=== PATIENT | female | born 1970 | race Caucasian/White ===

== ENCOUNTER 2017-09-10 10:30 | Observation (INO) ==
[2017-09-10] MEDS ORDERED: Ondansetron 4 MG/2 ML VIAL IVP ONE (10:59)
[2017-09-10] MEDS ORDERED: *HR* FentaNYL (PF) 100 MCG/2 ML VIAL IVP ONE ×3 (10:59→20:11)
[2017-09-10] MEDS ORDERED: Famotidine 20 MG/2 ML VIAL IVP ONE (10:59)
[2017-09-10] MEDS ORDERED: Isovue-370 500 ML INFUS..BTL IV ONE (11:00)
--- NOTE | 2017-09-10 11:11 | Emergency Department Note ---
Disposition Clinical Impression: Abdominal pain Qualifiers: Abdominal location: epigastric Qualified Code(s): R10.13 - Epigastric pain Disposition: Admitted As Inpatient Condition: Good Instructions: Abdominal Pain (ED) Reasons to Return/Additional Instructions: Please return to the emergency department should you have any other concerns. No cause for your abdominal pain was identified today. Given your history of pancreatic divisum, please stay in close contact with your pain specialist/ interventional radiologist to discuss future further need for celiac plexus blocks Referrals: Romaine Schmitt DO [Primary Care Provider] - Forms: ED Satisfaction Letter, Work/School Release Time of Disposition: 12:49 Abdominal Pain HPI - General Chief Complaint: ED Abdominal Pain Stated Complaint: ABD Pain Time Seen by Provider: 09/10/17 10:41 Source: patient Limitations: no limitations Nursing Notes Reviewed: Yes Vital Signs Reviewed: Yes - History of Present Illness HPI Narrative: Patient with history of pancreatic divisum. She states this pain is different. She complains of epigastric pain radiating to her back. She has underwent celiac plexus blocks at an outside tertiary facility recently. Pt Subjective Complaint: abdominal pain Onset (ago): day(s) Consistency: constant Location: diffuse, epigastric Pain Severity: severe Pain Scale: 9 Quality: aching Radiation: back, chest Improves with: nothing Worsens with: nothing Associated symptoms: Reports: nausea, diarrhea Treatments prior to arrival: other (Dulcolax) - Related Data Home Medications Medication Instructions Recorded Confirmed FLUoxetine HCl [Fluoxetine HCl] 40 mg PO DAILY 09/10/17 09/10/17 Gabapentin [Neurontin] 300 mg PO BID 09/10/17 09/10/17 Insulin Glargine,Hum.rec.anlog 30 unit SQ 09/10/17 09/10/17 [Basaglar Kwikpen U-100] Levothyroxine Sodium 88 mcg PO QAM 09/10/17 09/10/17 Metformin HCl [Metformin HCl ER] 1,000 mg PO BID 09/10/17 09/10/17 Ondansetron HCl 4 mg PO Q72H PRN 09/10/17 09/10/17 Oxybutynin [Ditropan] 5 mg PO BID 09/10/17 09/10/17 Ropinirole HCl [Requip] 0.5 mg PO HS 09/10/17 09/10/17 Topiramate [Topamax] 200 mg PO QPM 09/10/17 09/10/17 Topiramate [Topamax] 400 mg PO QAM 09/10/17 09/10/17 Allergies Allergy/AdvReac Type Severity Reaction Status Date / Time ciprofloxacin [From Cipro] Allergy Rash Verified 08/13/17 13:32 prochlorperazine AdvReac Mild Irritable Verified 08/13/17 13:32 [From Compazine] atorvastatin [From Lipitor] AdvReac Muscle Pain Verified 08/13/17 13:32 ketorolac [From Toradol] AdvReac Hypotension Verified 08/13/17 13:32 metoclopramide [From Reglan] AdvReac Confusion Verified 08/13/17 13:32 promethazine AdvReac Irritable Verified 08/13/17 13:32 All systems ED: reviewed and negative except as stated. Constitutional: Reports: as per HPI Eyes: Reports: as per HPI ENT ED: Reports: as per HPI Cardiovascular: Reports: chest pain Respiratory: Reports: as per HPI Gastrointestinal: Reports: abdominal pain, nausea, diarrhea Genitourinary: Reports: as per HPI Musculoskeletal: Reports: back pain Integumentary: Reports: as per HPI Neurological: Reports: as per HPI Abdominal Pain PMH - Past Medical History Medical history: Reports: diabetes, GERD, hyperlipidemia, migraine, thyroid disease, other Female Surgical History: Reports: cholecystectomy, hysterectomy, Tonsillectomy, other WANT AD RECEIVER history: Reports: non-contributory Psychiatric history: Reports: depression - Social History Smoking status: Never smoker Alcohol use: Reports: none Drug use: Reports: none Physical Exam Uncomfortable appearing - General Limitations: no limitations General appearance: alert - Head Head exam: atraumatic - Eye Eye exam: Present: normal appearance - ENT ENT exam: normal exam - Neck Neck exam: Present: normal inspection, full ROM - Chest Chest inspection: Present: normal inspection, symmetric chest wall rise - Respiratory Respiratory exam: Present: normal lung sounds bilaterally - Cardiovascular Cardiovascular exam: Present: regular rate, normal rhythm, normal heart sounds - Abdominal Exam Abdominal exam: Present: soft, tenderness (Mild tenderness in her epigastrium. No guarding rebound or rigidity), normal bowel sounds - Rectal Exam Rectal exam: Present: deferred - Extremities Exam Extremities exam: Present: normal inspection - Neurological Exam Neurological exam: Present: alert, oriented X3, CN II-XII intact - Psychiatric Psychiatric exam: Present: normal affect, anxious - Skin Skin exam: Present: warm, dry, intact Course Course Narrative: Patient presents to emergency department with upper abdominal pain. History of chronic recurrent abdominal pain which she states is subjectively different from her pancreatic divisum. She has a history of celiac plexus blocks. Labs and CT of her abdomen and pelvis ordered. The nurses were unable to obtain peripheral IV access I did start a 22-gauge left-sided external jugular line on first attempt - Reevaluation(s) Reevaluation #1: The patient developed non-urticarial erythema over her neck and upper chest after the administration of the fentanyl. She states this is not uncommon. No stridor or oropharyngeal swelling. IV antihistamines ordered and I will continue to observe Reevaluation #2: I initially recommended outpatient follow-up. The patient is uncomfortable with this plan. She states her pain is ongoing and uncontrolled. She requests admission or transfer. I will consult GI and requested admission to the medicine service - Consultations Consultation #1: GI warehouse consultant, Dr. Rodriguez Vital Signs Temperature 97.6 F 09/10/17 10:31 Pulse Rate 79 09/10/17 10:31 Respiratory Rate 18 09/10/17 10:31 Blood Pressure 129/80 09/10/17 10:31 O2 Sat by Pulse Oximetry 95 09/10/17 10:31 Temperature 97.6 F 09/10/17 10:37 Pulse Rate 76 09/10/17 14:10 Respiratory Rate 16 09/10/17 14:10 Blood Pressure 126/86 09/10/17 14:10 O2 Sat by Pulse Oximetry 98 09/10/17 14:10 Oxygen Delivery Oxygen Delivery Room Air Abdominal Pain - Lab Data Lab results reviewed: Yes I reviewed the patient's lab results. Result diagrams: 09/10/17 11:13 09/10/17 11:13 Lab Results 09/10/17 09/10/17 09/10/17 Range/Units 10:42 10:42 11:13 WBC 8.0 (4.3-11.1) K/mcL RBC 4.68 (3.82-4.97) M/mcL Hgb 13.6 (11.5-15.4) g/dL Hct 38.8 (35.3-44.9) % MCV 82.9 L (83.0-100.0) fL MCH 29.1 (28.0-33.3) pg MCHC 35.1 (31.6-35.5) g/dL RDW 13.2 (11.5-14.5) % Plt Count 154 (140-400) K/mcL MPV 9.7 (9.4-12.4) fL Immature Gran % 0.2 (0-4) % Seg Neutrophils % 56.1 % Lymphocytes % 35.9 % Monocytes % 5.6 % Eosinophils % 1.7 % Basophils % 0.5 % Neutrophils # 4.5 (1.6-8.9) K/mcL Lymphocytes # 2.9 (0.6-4.6) K/mcL Monocytes # 0.5 (0.0-1.3) K/mcL Eosinophils # 0.1 (0.0-0.6) K/mcL Basophils # 0.0 (0.0-0.2) K/mcL PT (9.4-12.1) Seconds INR APTT (26.0-36.0) Seconds Sodium (136-145) mEq/L Potassium (3.5-5.1) mEq/L Chloride (98-107) mEq/L Carbon Dioxide (23-29) mEq/L BUN (6-20) mg/dL Creatinine (0.60-1.20) mg/dL Est GFR ( Amer) (> 60) Est GFR (Non-Af Amer) (> 60) BUN/Creatinine Ratio (6-26) Glucose (70-105) mg/dL Calculated Osmolality (280-300) Calcium (8.6-10.3) mg/dL Total Bilirubin (0.3-1.0) mg/dL Direct Bilirubin (0.0-0.2) mg/dL Indirect Bilirubin (0.0-1.2) mg/dL AST (13-39) Units/L ALT (7-52) Units/L Alkaline Phosphatase (34-104) Units/L Troponin I (< 0.04) ng/mL Serum Total Protein (6.4-8.9) g/dL Albumin (3.5-5.7) g/dL Globulin (2.4-3.5) g/dL Albumin/Globulin Ratio (1.1-2.2) Amylase (29-103) Units/L Lipase (11-82) Units/L Urine Color Yellow (Yellow) Urine Clarity Clear (Clear) Urine pH 7.0 (5.0-8.0) pH Units Ur Specific [place] 1.013 (1.010-1.025) Urine Protein Negative (Neg-Trace) mg/dL Urine Glucose (UA) Normal (Normal) mg/dL Urine Ketones Negative (Negative) mg/dL Urine Blood Negative (Negative) Urine Nitrite Negative (Negative) Urine Bilirubin Negative (Negative) Urine Urobilinogen Normal (Normal) mg/dL Ur Leukocyte Esterase Negative (Negative) Ur Culture Indicated? NO (NO) Urine Test Negative (Negative) 09/10/17 09/10/17 Range/Units 11:13 11:13 WBC (4.3-11.1) K/mcL RBC (3.82-4.97) M/mcL Hgb (11.5-15.4) g/dL Hct (35.3-44.9) % MCV (83.0-100.0) fL MCH (28.0-33.3) pg MCHC (31.6-35.5) g/dL RDW (11.5-14.5) % Plt Count (140-400) K/mcL MPV (9.4-12.4) fL Immature Gran % (0-4) % Seg Neutrophils % % Lymphocytes % % Monocytes % % Eosinophils % % Basophils % % Neutrophils # (1.6-8.9) K/mcL Lymphocytes # (0.6-4.6) K/mcL Monocytes # (0.0-1.3) K/mcL Eosinophils # (0.0-0.6) K/mcL Basophils # (0.0-0.2) K/mcL PT 12.4 H (9.4-12.1) Seconds INR 1.1 APTT 29.4 (26.0-36.0) Seconds Sodium 139 (136-145) mEq/L Potassium 3.8 (3.5-5.1) mEq/L Chloride 107 (98-107) mEq/L Carbon Dioxide 21 L (23-29) mEq/L BUN 10 (6-20) mg/dL Creatinine 0.74 (0.60-1.20) mg/dL Est GFR ( Amer) > 60 (> 60) Est GFR (Non-Af Amer) > 60 (> 60) BUN/Creatinine Ratio 14 (6-26) Glucose 194 H (70-105) mg/dL Calculated Osmolality 292 (280-300) Calcium 9.7 (8.6-10.3) mg/dL Total Bilirubin 0.6 (0.3-1.0) mg/dL Direct Bilirubin 0.2 (0.0-0.2) mg/dL Indirect Bilirubin 0.4 (0.0-1.2) mg/dL AST 36 (13-39) Units/L ALT 28 (7-52) Units/L Alkaline Phosphatase 99 (34-104) Units/L Troponin I < 0.03 (< 0.04) ng/mL Serum Total Protein 6.8 (6.4-8.9) g/dL Albumin 4.2 (3.5-5.7) g/dL Globulin 2.6 (2.4-3.5) g/dL Albumin/Globulin Ratio 1.6 (1.1-2.2) Amylase 31 (29-103) Units/L Lipase 38 (11-82) Units/L Urine Color (Yellow) Urine Clarity (Clear) Urine pH (5.0-8.0) pH Units Ur Specific [place] (1.010-1.025) Urine Protein (Neg-Trace) mg/dL Urine Glucose (UA) (Normal) mg/dL Urine Ketones (Negative) mg/dL Urine Blood (Negative) Urine Nitrite (Negative) Urine Bilirubin (Negative) Urine Urobilinogen (Normal) mg/dL Ur Leukocyte Esterase (Negative) Ur Culture Indicated? (NO) Urine Test (Negative) - Radiology Data Radiology results reviewed: Yes I reviewed the patient's radiology results. - EKG Data EKG attestation: Yes I reviewed and interpreted this EKG. EKG results narrative: Normal sinus rhythm rate 66 P-R 126 QRS 81 QT/QTC 388/401. No acute ST segment elevation. Study compared to previous dated 12/13/16 Critical Care Time Critical Care Time: Yes Total Critical Care Time: 30 Attestation: The high probability of a clinically significant, sudden or life threatening deterioration of the [] system(s) required my full and direct attention, intervention and personal management. The aggregate critical care time was [] minutes. This time is in addition to time spent performing reported procedures but includes the following: [] Data Review and interpretation [] Patient assessment and monitoring of vital signs [] Documentation [] Medication orders and management
[2017-09-10 11:28] LABS: Basophils % 0.5 %; Eosinophils # 0.1 K/mcL (0.0-0.6); Eosinophils % 1.7 %; Hematocrit 38.8 % (35.3-44.9); Hemoglobin 13.6 g/dL (11.5-15.4); Immature Granulocytes % 0.2 % (0-4); Lymphocytes # 2.9 K/mcL (0.6-4.6); Lymphocytes % 35.9 %; Mean Corpuscular HGB Conc 35.1 g/dL (31.6-35.5); Mean Corpuscular Hemoglobin 29.1 pg (28.0-33.3); Mean Corpuscular Volume 82.9 fL (83.0-100.0); Mean Platelet Volume 9.7 fL (9.4-12.4); Monocytes # 0.5 K/mcL (0.0-1.3); Monocytes % 5.6 %; Neutrophils # 4.5 K/mcL (1.6-8.9); Platelet Count 154 K/mcL (140-400); Red Blood Count 4.68 M/mcL (3.82-4.97); Red Cell Distribution Width 13.2 % (11.5-14.5); Segmented Neutrophils % 56.1 %
[2017-09-10 11:36] LABS: INR 1.1; Prothrombin Time 12.4 Seconds (9.4-12.1)
[2017-09-10 11:39] LABS: Activated Partial Thrombo Time 29.4 Seconds (26.0-36.0)
[2017-09-10 11:48] LABS: Troponin I < 0.03 ng/mL (< 0.04)
[2017-09-10 11:54] LABS: Alanine Aminotransferase 28 Units/L (7-52); Albumin 4.2 g/dL (3.5-5.7); Albumin/Globulin Ratio 1.6 (1.1-2.2); Alkaline Phosphatase 99 Units/L (34-104); Amylase 31 Units/L (29-103); Aspartate Amino Transferase 36 Units/L (13-39); BUN/Creatinine Ratio 14 (6-26); Bilirubin,Direct 0.2 mg/dL (0.0-0.2); Bilirubin,Indirect 0.4 mg/dL (0.0-1.2); Bilirubin,Total 0.6 mg/dL (0.3-1.0); Blood Urea Nitrogen 10 mg/dL (6-20); Calcium 9.7 mg/dL (8.6-10.3); Carbon Dioxide 21 mEq/L (23-29); Chloride 107 mEq/L (98-107); Globulin 2.6 g/dL (2.4-3.5); Glucose 194 mg/dL (70-105); Lipase 38 Units/L (11-82); Osmolality,Calculated 292 (280-300); Potassium 3.8 mEq/L (3.5-5.1); Sodium 139 mEq/L (136-145); Total Protein 6.8 g/dL (6.4-8.9); eGFR For African Americans > 60 (> 60); eGFR For Non-African Americans > 60 (> 60)
[2017-09-10 11:58] LABS: Bilirubin,Urine Negative (Negative); Blood,Urine Negative (Negative); Clarity,Urine Clear (Clear); Color,Urine Yellow (Yellow); Glucose,Urine (UA) Normal (Normal); Ketones,Urine Negative (Negative); Leukocyte Esterase,Urine Negative (Negative); Nitrite,Urine Negative (Negative); Protein,Urine Negative (Neg-Trace); Specific Gravity,Urine 1.013 (1.010-1.025); Urobilinogen,Urine Normal (Normal)
[2017-09-10] MEDS ORDERED: Ketamine *HR* 20 MG in 0.9 % Sodium Chloride 100 ML IVPB ONE (13:37)
[2017-09-10] MEDS ORDERED: 0.9 % Sodium Chloride 1,000 ML IVC ONE (13:45)
--- NOTE | 2017-09-10 14:53 | Electrocardiograph Report ---
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
--- NOTE | 2017-09-10 16:44 | Internal Med History&Physical ---
Date of Encounter: 09/10/17 Time of Encounter: 16:44 Internal Medicine - H&P: HPI Chief complaint: Abdominal pain History of present illness: Ms. Colmenares is a 47 year old female presents to emergency department with upper abdominal pain. History of chronic recurrent abdominal pain which she states is subjectively different from her pancreatic divisum. She has a history of celiac plexus blocks. Labs and CT of her abdomen and pelvis were negative. She is requesting pain medication and Benadryl IV only, concerns for drug seeking behavior, admitted for pain control. GI was contacted by ER and agree to see in consult. Past Med Surg Social Fam HX - Past Medical History Medical history: diabetes, GERD, hyperlipidemia, migraine, thyroid disease, other Additional medical history: pancreatic dividism Psychiatric history: depression - Past Surgical History Surgical History: cholecystectomy Additional surgical history: back - Social History Smoking Status: Never smoker Smokeless Tobacco Status: No Alcohol use: none Drug use: none - Family History Father Living Status: Still Living Hx Family Cardiac Disorders: Yes Hx Family Endocrine Disorder: Yes Mother Living Status: Hx Family Respiratory Disorders: Yes Hx Family Cancer: Yes (colon cancer) Internal Medicine - H&P: Meds FLUoxetine HCl [Fluoxetine HCl] 40 mg PO DAILY 09/10/17 [History] Gabapentin [Neurontin] 300 mg PO BID 09/10/17 [History] Insulin Glargine,Hum.rec.anlog [Basaglar Kwikpen U-100] 30 unit SQ HS 09/10/17 [ History] Levothyroxine Sodium 88 mcg PO QAM 09/10/17 [History] Metformin HCl [Metformin HCl ER] 1,000 mg PO BID 09/10/17 [History] Ondansetron HCl 4 mg PO Q72H PRN 09/10/17 [History] Oxybutynin [Ditropan] 5 mg PO BID 09/10/17 [History] Ropinirole HCl [Requip] 0.5 mg PO HS 09/10/17 [History] Topiramate [Topamax] 200 mg PO QAM 09/10/17 [History] Topiramate [Topamax] 400 mg PO QPM 09/10/17 [History] 3 Allergy/AdvReac Type Severity Reaction Status Date / Time ciprofloxacin [From Cipro] Allergy Rash Verified 08/13/17 13:32 prochlorperazine AdvReac Mild Irritable Verified 08/13/17 13:32 [From Compazine] atorvastatin [From Lipitor] AdvReac Muscle Pain Verified 08/13/17 13:32 ketorolac [From Toradol] AdvReac Hypotension Verified 08/13/17 13:32 metoclopramide [From Reglan] AdvReac Confusion Verified 08/13/17 13:32 promethazine AdvReac Irritable Verified 08/13/17 13:32 All Systems PM: A 10-system review of systems was performed and is negative for pertinent findings except as documented above in the HPI. - Constitutional Constitutional: no chills, no fever(s), no night sweats - Cardiovascular Cardiovascular ROS IM: no chest pain, no diaphoresis, no dyspnea, no lightheadedness, no palpitations, no syncope - Respiratory Respiratory: no cough, no dyspnea, no wheezing, no excessive phlegm production - Gastrointestinal Gastrointestinal: abdominal pain, no diarrhea, no hematemesis, no hematochezia, no melena, no nausea, no vomiting - Neurological Neurological ROS: no confusion, no convulsions, no focal weakness, no numbness, no tingling, no tremor(s) - Constitutional Vitals: Temp Pulse Resp BP Pulse Ox 97.6 F 63 16 128/87 98 09/10/17 10:37 09/10/17 14:54 09/10/17 15:34 09/10/17 15:34 09/10/17 14:54 General appearance: Present: A&O X 3 - Head Head exam: Present: atraumatic, normocephalic - Neck Neck exam general surgery: Present: supple, trachea midline. Absent: lymphadenopathy - Respiratory Respiratory exam: Present: CTAB. Absent: accessory muscle use, rales, rhonchi, wheezes - Cardiovascular Cardiovascular exam: Present: RRR, +S1, +S2. Absent: diastolic murmur, gallop, rubs, systolic murmur - GI/Abdominal GI/Abdominal exam: Present: normal bowel sounds, soft, no peritoneal signs. Absent: distended, tenderness - Extremities Exam Extremities exam: Present: warm, radial pulses palpable and symmetrical. Absent : calf tenderness, cyanotic, pedal edema Internal Med - H&P Results - Labs CBC & Chem 7: 09/11/17 08:37 09/11/17 08:37 - Assessment and plan (1) Abdominal pain Current Visit: Yes Status: Acute Assessment and plan: Recurrent abdominal pain which she states is subjectively different from her pancreatic divisum. She has a history of celiac plexus blocks. She is requesting pain medication and Benadryl IV only, concerns for drug seeking behavior, admitted for pain control. GI was contacted by ER and agree to see in consult. Qualifiers: Abdominal location: epigastric Qualified Code(s): R10.13 - Epigastric pain (2) HLD (hyperlipidemia) Current Visit: Yes Status: Inactive Assessment and plan: We will obtain fasting lipid profile in a.m., currently not on any medication Qualifiers: Hyperlipidemia type: unspecified Qualified Code(s): E78.5 - Hyperlipidemia , unspecified (3) GERD (gastroesophageal reflux disease) Current Visit: No Status: Chronic Qualifiers: Qualified Code(s): K21.9 - Gastro-esophageal reflux disease without esophagitis (4) Pancreatic divisum Current Visit: No Status: Acute Assessment and plan: t reports history of pancreatic divisum, S/p celiac plexus blocks completed at [facility]. We will consult GI for further evaluation and management. (5) Diabetes Current Visit: No Status: Chronic Assessment and plan: We will continue home medication start patient insofar as scale with moderate coverage Qualifiers: Diabetes mellitus type: type 2 Diabetes mellitus complication status: without complication Qualified Code(s): E11.9 - Type 2 diabetes mellitus without complications (6) Hypothyroidism Current Visit: No Status: Acute Assessment and plan: We will continue home thyroxine Qualifiers: Qualified Code(s): E03.9 - Hypothyroidism, unspecified (7) Bipolar 1 disorder Current Visit: No Status: Chronic Assessment and plan: We will continue home medication (8) DVT prophylaxis Current Visit: No Status: Acute Assessment and plan: heparin 5000 BID - Time Spent With Patient Total time spent is greater than 50% in coordination of care (as documented) at patient's floor/unit and/or counseling patient:
[2017-09-10] MEDS ORDERED: ONDANSETRON HCL 4 MG PO PRN (16:45)
[2017-09-10] MEDS ORDERED: Ondansetron ODT 4 MG TAB.RAPDIS SL PRN (17:50)
[2017-09-10] MEDS ORDERED: Acetaminophen 325 MG TABLET PO PRN (17:50)
[2017-09-10] MEDS ORDERED: Ondansetron 4 MG/2 ML VIAL IVP PRN (17:50)
[2017-09-10] MEDS ORDERED: Naloxone 0.4 MG/ML INJ IVP PRN (17:50)
[2017-09-10] MEDS ORDERED: traMADol 50 MG TABLET PO PRN (17:50)
[2017-09-10] MEDS ORDERED: Topiramate 100 MG TABLET PO SCH ×2 (18:00→18:15)
[2017-09-10] MEDS: *HR* OxyCODONE Immed Rel 5 MG TABLET PO PRN (18:18)
[2017-09-10] MEDS: *HR* Metformin 500 MG TABLET PO SCH (18:55)
[2017-09-10] MEDS ORDERED: Acetaminophen IV 1,000 MG/100 ML INFUS..BTL IVPB PRN (20:20)
[2017-09-10] MEDS ORDERED: Insulin DETEMIR 100 UNIT/ML X5UNITS SQ SCH (21:00)
[2017-09-10] MEDS ORDERED: rOPINIRole 1 MG TABLET PO SCH (21:00)
[2017-09-10] MEDS: Gabapentin 300 MG CAPSULE PO SCH (21:30)
[2017-09-11] MEDS ORDERED: GI Cocktail 40 ML EACH PO ONE (03:06)
[2017-09-11] MEDS: *HR* OxyCODONE Immed Rel 5 MG TABLET PO PRN (08:08)
[2017-09-11] MEDS: *HR* Metformin 500 MG TABLET PO SCH (08:10)
[2017-09-11] MEDS: Gabapentin 300 MG CAPSULE PO SCH (08:10)
[2017-09-11] MEDS ORDERED: Naloxone 0.4 MG/ML INJ IVP PRN (08:14)
[2017-09-11 08:56] LABS: Basophils % 0.6 %; Eosinophils # 0.2 K/mcL (0.0-0.6); Eosinophils % 2.4 %; Hematocrit 39.7 % (35.3-44.9); Hemoglobin 13.8 g/dL (11.5-15.4); Immature Granulocytes % 0.2 % (0-4); Lymphocytes # 2.4 K/mcL (0.6-4.6); Lymphocytes % 37.8 %; Mean Corpuscular HGB Conc 34.8 g/dL (31.6-35.5); Mean Corpuscular Hemoglobin 29.2 pg (28.0-33.3); Mean Corpuscular Volume 84.1 fL (83.0-100.0); Mean Platelet Volume 9.6 fL (9.4-12.4); Monocytes # 0.4 K/mcL (0.0-1.3); Neutrophils # 3.3 K/mcL (1.6-8.9); Platelet Count 158 K/mcL (140-400); Red Blood Count 4.72 M/mcL (3.82-4.97); Red Cell Distribution Width 13.3 % (11.5-14.5)
[2017-09-11] MEDS ORDERED: Topiramate 100 MG TABLET PO SCH ×2 (09:00→10:25)
[2017-09-11] MEDS ORDERED: FLUoxetine 20 MG CAPSULE PO SCH ×2 (09:00→10:14)
[2017-09-11 09:02] LABS: INR 1.1; Prothrombin Time 12.3 Seconds (9.4-12.1)
[2017-09-11 09:05] LABS: Activated Partial Thrombo Time 33.3 Seconds (26.0-36.0)
[2017-09-11 09:13] LABS: Alanine Aminotransferase 31 Units/L (7-52); Albumin 3.9 g/dL (3.5-5.7); Albumin/Globulin Ratio 1.3 (1.1-2.2); Alkaline Phosphatase 81 Units/L (34-104); Aspartate Amino Transferase 53 Units/L (13-39); BUN/Creatinine Ratio 13 (6-26); Bilirubin,Total 1.1 mg/dL (0.3-1.0); Blood Urea Nitrogen 9 mg/dL (6-20); Calcium 9.1 mg/dL (8.6-10.3); Carbon Dioxide 23 mEq/L (23-29); Chloride 109 mEq/L (98-107); Globulin 2.9 g/dL (2.4-3.5); Glucose 138 mg/dL (70-105); Magnesium 1.8 mg/dL (1.6-2.6); Osmolality,Calculated 289 (280-300); Phosphorous 4.7 mg/dL (2.7-4.5); Potassium 3.8 mEq/L (3.5-5.1); Sodium 139 mEq/L (136-145); Total Protein 6.8 g/dL (6.4-8.9); eGFR For African Americans > 60 (> 60); eGFR For Non-African Americans > 60 (> 60)
[2017-09-11] MEDS ORDERED: Gabapentin 300 MG CAPSULE PO SCH (10:15)
--- NOTE | 2017-09-11 11:01 | Gastroenterology Consult Note ---
Date of Encounter: 09/11/17 Time of Encounter: 10:20 - Assessment and plan (1) Abdominal pain Current Visit: Yes Status: Acute Assessment and plan: Due to epigastric pain and continued use of omeprazole, consider EGD tomorrow to r/o esophagitis, gastritis, duodenitis, PUD, MW tear, or AVM. Start omeprazole 40 mg daily. Pt requesting IV pain medication and IV Benadryl. Concern for drug seeking behavior. Patient educated regarding lifestyle modifications including: (1) avoidance of foods that may precipitate reflux (eg, coffee, alcohol, chocolate, fatty foods) . (2) avoidance of acidic foods that may precipitate heartburn (eg, citrus, carbonated drinks, spicy foods). (3) adoption of behaviors that may reduce esophageal acid exposure (see weight loss, smoking cessation, raising the head of the bed, and avoiding recumbency for 2-3 hours after meals). Qualifiers: Abdominal location: epigastric Qualified Code(s): R10.13 - Epigastric pain (2) Pancreatic divisum Current Visit: Yes Status: Acute Assessment and plan: Pt reports history of pancreatic divisum, and states she is receiving treatment once per year at [facility]. Patient has had 10 CT A/P since 05/15/2015 with no abnormality noted to pancreas. No MRIs have been completed here. Patient reports having MRI and celiac plexus blocks completed at [facility]. Please obtain these records for review. - Time Spent With Patient Total time spent is greater than 50% in coordination of care (as documented) at patient's floor/unit and/or counseling patient: GI History of Present Illness - Data of Consult Patient: new to practice Consult date: 09/11/17 Requesting Physician: Christina Chatman - Consult Narrative Reason for consult: Abdominal pain History of present illness: Ms. Colmenares is a 47 year old female with PMHx of DM, pancreatic divisum, GERD, HLD, migraine, thyroid disease who presented to the ED with upper abdominal pain. She has underwent celiac plexus blocks at an outside tertiary facility recently (at [facility]). She states this pain is different from her pancreatic divisum. CT A/P with no acute pathology. She is requesting pain medication and Benadryl IV only, concerns for drug seeking behavior, admitted for pain control. Pt reports having celiac nerve blocks about once per year at [facility], last was 2-3 weeks ago per pt report. With review of medical record, it appears she also had celiac block in August 2016. Today, she is complaining of epigastric pain that is worsened with eating. She reports taking omeprazole 40 mg daily for "several years". Patient was eating when I examined her, and she states she has only had 1-2 bites of food today. Per RN, patient also ate a bowl of cream of wheat this morning. Pt states "they are only giving me pain pills, if I wanted that I could have stayed home". Procedures: EGD 02/18/2014 Dr. Rasheed: Normal Esophageal manometry 01/09/2013 Dr. Menjivar: Normal EGD 12/29/2012 Dr. Menjivar: Normal NSAIDs: None Anticoagulation: None Past Med Surg Social Fam HX - Past Medical History Medical history: diabetes, GERD, hyperlipidemia, migraine, thyroid disease, other Additional medical history: pancreatic dividism Psychiatric history: depression - Past Surgical History Surgical History: cholecystectomy Additional surgical history: back - Social History Smoking Status: Never smoker Smokeless Tobacco Status: No Alcohol use: none Drug use: none - Family History Father Living Status: Still Living Hx Family Cardiac Disorders: Yes Hx Family Endocrine Disorder: Yes Mother Living Status: Hx Family Respiratory Disorders: Yes Hx Family Cancer: Yes (colon cancer) - Gastrointestinal Gastrointestinal: Present: as per HPI - Constitutional Constitutional: as per HPI - EENT Eyes: as per HPI Ears: Present: as per HPI Nose, mouth and throat: Present: as per HPI - Cardiovascular Cardiovascular ROS: Present: as per HPI - Respiratory Respiratory IM: Present: as per HPI - Genitourinary Genitourinary: Absent: change in color, Urinary frequency - Neurological ROS Neurological GI: Present: as per HPI - Hematologic/Lymphatic Hematologic/Lymphatic pediatric: Present: as per HPI - Musculoskeletal Musculoskeletal ROS GI: Present: as per HPI - Integumentary Integumentary GI: Present: as per HPI - Psychiatric ROS Psychiatric GI: Present: as per HPI - Endocrine Endocrine IM: Present: as per HPI - Constitutional Vitals: Temp Pulse Resp BP Pulse Ox 97.7 F 63 17 116/78 96 09/10/17 23:22 09/10/17 23:22 09/10/17 23:22 09/10/17 23:22 09/10/17 23:22 General appearance: Present: cooperative, A&O X 3, no acute distress, answers questions appropriately - Head Head exam: Present: atraumatic, normocephalic - Eye Eye exam: Present: normal appearance, sclera anicteric - ENT ENT exam: Present: mucous membranes moist - Neck Neck exam general surgery: Present: normal inspection, trachea midline - Respiratory Respiratory exam: Present: CTAB. Absent: rales, rhonchi - Cardiovascular Cardiovascular exam: Present: RRR, +S1, +S2 - GI/Abdominal GI/Abdominal exam: Present: soft, tenderness (epigastric), no peritoneal signs. Absent: distended, firm, guarding - Rectal Rectal exam: Present: deferred - Extremities Exam Extremities exam: Present: warm - Neurological Exam Neurological exam: Present: no focal deficits - Psychiatric Psychiatric exam: Present: normal affect, normal mood - Skin Skin exam: Present: dry, intact, normal color, warm Results - Labs CBC & Chem 7: 09/11/17 08:37 09/11/17 08:37 Labs: Last Result Calcium 9.1 mg/dL (8.6-10.3) 09/11/17 08:37 Troponin I < 0.03 ng/mL (< 0.04) 09/10/17 11:13 Entire Visit Hgb 13.8 g/dL (11.5-15.4) 09/11/17 08:37 Hct 39.7 % (35.3-44.9) 09/11/17 08:37 PT 12.3 Seconds (9.4-12.1) H 09/11/17 08:37 Total Bilirubin 1.1 mg/dL (0.3-1.0) H 09/11/17 08:37 AST 53 Units/L (13-39) H 09/11/17 08:37 ALT 31 Units/L (7-52) 09/11/17 08:37 Amylase 31 Units/L (29-103) 09/10/17 11:13 Lipase 38 Units/L (11-82) 09/10/17 11:13 - ABG ABG results: PT/INR, D-dimer PT 12.3 Seconds (9.4-12.1) H 09/11/17 08:37 Consult Discharge Plan - Plan Referrals: Romaine Schmitt DO [Primary Care Provider] -
[2017-09-11] MEDS ORDERED: *HR* Dextrose 50 % in Water (Syg) 50 ML SYRINGE IVP PRN (13:33)
[2017-09-11] MEDS ORDERED: Dextrose Gel 15 GM/37.5 ML TUBE PO PRN ×2 (13:33)
[2017-09-11] MEDS ORDERED: D5% in Water 1,000 ML IVC PRN (13:33)
[2017-09-11 14:26] VITALS: BP 104/69
[2017-09-11] MEDS ORDERED: Insulin LISPRO 300 UNITS/3 ML VIAL SQ SCH ×2 (16:30→21:00)
--- NOTE | 2017-09-11 17:01 | Discharge Summary ---
- NOTES TO OUTPATIENT PROVIDER Notes to Outpatient Provider: F/U with PCP out pt Date of Encounter: 09/11/17 Time of Encounter: 16:59 - Discharge Diagnosis (1) Abdominal pain Priority: Primary Status: Acute Assessment and Plan: Recurrent abdominal pain which she states is subjectively different from her pancreatic divisum. She has a history of celiac plexus blocks. She is requesting pain medication and Benadryl IV only, concerns for drug seeking behavior from prior physicians, admitted for pain control. GI was contacted by ER and agree to see in consult. Pt states last block was about 2 weeks ago and she gets one about every year. GI evaluated the patient and had requested records from [place]. Pt states "I don't think it's my pancreas causing the pain." When asked to point to her pain she pointed to her epigastrium. She states prior pancreatic pain was LUQ but this abd pain radiates to her RUQ. When asked about her GB she states she had pamela done years ago. Denied fever chills, N/V constipation or diarrhea. Pt informed that GI was awaiting her records from [place]. SHe seemed discontent with this. Nurse informed me that pt left AMA. Qualifiers: Abdominal location: epigastric Qualified Code(s): R10.13 - Epigastric pain (2) GERD (gastroesophageal reflux disease) Priority: Secondary Status: Chronic Assessment and Plan: PPI Qualifiers: Qualified Code(s): K21.9 - Gastro-esophageal reflux disease without esophagitis (3) HLD (hyperlipidemia) Priority: Secondary Status: Inactive Assessment and Plan: no medication listed on home med list Qualifiers: Hyperlipidemia type: unspecified Qualified Code(s): E78.5 - Hyperlipidemia , unspecified (4) Pancreatic divisum Priority: Secondary Status: Acute Assessment and Plan: Pt reports history of pancreatic divisum, S/p celiac plexus blocks completed at [facility]. Pt states last block was about 2 weeks ago and she gets one about every year. GI evaluated the patient and had requested records from [place]. Pt states "I don't think it's my pancreas causing the pain." When asked to point to her pain she pointed to her epigastrium. She states prior pancreatic pain was LUQ but this abd pain radiates to her RUQ. When asked about her GB she states she had pamela done years ago. Denied fever chills, N/V constipation or diarrhea. Pt informed that GI was awaiting her records from [place]. SHe seemed discontent with this. Nurse informed me that pt left AMA. Hospital course: Ms. Colmenares is a 47 year old female Discharge discussed with: patient - Time Spent with Patient Total time spent providing and/or coordinating discharge services: Greater than 30 minutes - Discharge Medications Home Medications: FLUoxetine HCl [Fluoxetine HCl] 40 mg PO DAILY 09/10/17 [History] Gabapentin [Neurontin] 300 mg PO BID 09/10/17 [History] Insulin Glargine,Hum.rec.anlog [Basaglar Kwikpen U-100] 30 unit SQ HS 09/10/17 [ History] Levothyroxine Sodium 88 mcg PO QAM 09/10/17 [History] Metformin HCl [Metformin HCl ER] 1,000 mg PO BID 09/10/17 [History] Ondansetron HCl 4 mg PO Q72H PRN 09/10/17 [History] Oxybutynin [Ditropan] 5 mg PO BID 09/10/17 [History] Ropinirole HCl [Requip] 0.5 mg PO HS 09/10/17 [History] Topiramate [Topamax] 200 mg PO QAM 09/10/17 [History] Topiramate [Topamax] 400 mg PO QPM 09/10/17 [History] Allergies/Adverse Reactions: 3 Allergy/AdvReac Type Severity Reaction Status Date / Time ciprofloxacin [From Cipro] Allergy Rash Verified 08/13/17 13:32 prochlorperazine AdvReac Mild Irritable Verified 08/13/17 13:32 [From Compazine] atorvastatin [From Lipitor] AdvReac Muscle Pain Verified 08/13/17 13:32 ketorolac [From Toradol] AdvReac Hypotension Verified 08/13/17 13:32 metoclopramide [From Reglan] AdvReac Confusion Verified 08/13/17 13:32 promethazine AdvReac Irritable Verified 08/13/17 13:32 Date of admission: 09/10/17 14:43 Primary care physician: Romaine Schmitt Consults: 09/11/17 08:15 Consult to Physician [CONS] Routine Consulting Provider: Poonam Menjivar Reason for Consult: Abdominal pain Time Notified: 08:16 Call Completed: Yes - Constitutional Vitals: Temp Pulse Resp BP Pulse Ox 98.7 F 78 16 104/69 96 09/11/17 14:25 09/11/17 14:25 09/11/17 14:25 09/11/17 14:25 09/11/17 14:25 General appearance: Present: A&O X 3 - Head Head exam: Present: atraumatic, normocephalic - Eye Eye exam: Present: PERRL, conjuntiva pink, sclera anicteric Pupils: Present: PERRL - Neck Neck exam general surgery: Present: supple, trachea midline. Absent: lymphadenopathy - Respiratory Respiratory exam: Present: CTAB. Absent: accessory muscle use, rales, rhonchi, wheezes - Cardiovascular Cardiovascular exam: Present: RRR, +S1, +S2. Absent: diastolic murmur, gallop, rubs, systolic murmur - GI/Abdominal GI/Abdominal exam: Present: normal bowel sounds, soft, no peritoneal signs. Absent: distended, tenderness - Extremities Exam Extremities exam: Present: warm, radial pulses palpable and symmetrical. Absent : calf tenderness, cyanotic, pedal edema - Neurological Exam Neurological exam: Present: CN II-XII intact, oriented X3, no focal deficits. Absent: pronater drift, facial droop, speech deficit - Skin Skin exam: Present: dry, intact - Patient Status Disposition: Left Against Medical Advice Condition: Good - Discharge Instructions Follow Up With: Romaine Schmitt DO [Primary Care Provider] - - Diet and Activity Activity: increase activity as tolerated Diet: advance to your usual diet
[2017-09-11] MEDS ORDERED: *HR* Heparin 5,000 UNIT/ML VIAL SQ SCH (18:00)
== END 2017-09-11 15:46 | disposition left against medical advice (07) ==
LOC: 3ANU 10:30 → EMEROO 10:30 → 3ANU 15:20
PROVIDERS: ADMIT Internal Medicine Nephrology; ATTEND Internal Medicine Nephrology

== ENCOUNTER 2018-03-01 15:38 | Observation (INO) ==
[2018-03-01] MEDS ORDERED: Aspirin 81 MG TAB.CHEW PO ONE (15:50)
[2018-03-01] MEDS ORDERED: *HR* FentaNYL (PF) 100 MCG/2 ML VIAL IVP ONE (15:59)
--- NOTE | 2018-03-01 15:59 | Emergency Department Note ---
Disposition Clinical Impression: Chest pain Qualifiers: Chest pain type: precordial pain Qualified Code(s): R07.2 - Precordial pain Disposition: Admitted As Inpatient Condition: Good Referrals: Romaine Schmitt DO [Primary Care Provider] - Time of Disposition: 21:14 General Adult HPI - General Stated complaint: chest pain Time Seen by Provider: 03/01/18 15:43 Source: patient Mode of arrival: ambulatory Limitations: no limitations - History of Present Illness HPI Narrative: This is a 48-year-old female who comes to emergency department reporting chest pain above the left breast with extension or radiation into the left shoulder that began about 3 hours prior to arrival and is aggravated by activity. She reports no prior similar episodes. No nausea or vomiting. She does report dyspnea on exertion. - Related Data Home Medications Medication Instructions Recorded Confirmed FLUoxetine HCl [Fluoxetine HCl] 40 mg PO DAILY 09/10/17 09/10/17 Gabapentin [Neurontin] 300 mg PO BID 09/10/17 09/10/17 Insulin Glargine,Hum.rec.anlog 30 unit SQ 09/10/17 09/10/17 [Basaglar Kwikpen U-100] Levothyroxine Sodium 88 mcg PO QAM 09/10/17 09/10/17 Metformin HCl [Metformin HCl ER] 1,000 mg PO BID 09/10/17 09/10/17 Ondansetron HCl 4 mg PO Q72H PRN 09/10/17 09/10/17 Oxybutynin [Ditropan] 5 mg PO BID 09/10/17 09/10/17 Ropinirole HCl [Requip] 0.5 mg PO HS 09/10/17 09/10/17 Topiramate [Topamax] 200 mg PO QAM 09/10/17 09/10/17 Topiramate [Topamax] 400 mg PO QPM 09/10/17 09/10/17 Previous Rx's Medication Instructions Recorded Dicyclomine [Bentyl] 10 mg PO QID #12 capsule 12/06/17 Lidocaine Patch [Lidoderm 5% patch] 1 each TP DAILY PRN #3 adh..patch 12/06/17 Ondansetron ODT [Zofran ODT] 4 mg SL Q8HR PRN #12 tab.rapdis 12/06/17 Orphenadrine [Norflex] 100 mg PO BID #6 tablet.er 12/06/17 Allergies Allergy/AdvReac Type Severity Reaction Status Date / Time ciprofloxacin [From Cipro] Allergy Rash Verified 03/01/18 15:59 prochlorperazine AdvReac Mild Irritable Verified 03/01/18 15:59 [From Compazine] atorvastatin [From Lipitor] AdvReac Muscle Pain Verified 03/01/18 15:59 ketorolac [From Toradol] AdvReac Hypotension Verified 03/01/18 15:59 metoclopramide [From Reglan] AdvReac Confusion Verified 03/01/18 15:59 promethazine AdvReac Irritable Verified 03/01/18 15:59 All systems ED: reviewed and negative except as stated. 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 - Social History Smoking Status: Never smoker Smokeless Tobacco Status: No Alcohol use: Reports: none Drug use: Reports: none Physical Exam - General Limitations: no limitations General appearance: alert, in distress (In minimal distress) - Head Head exam: atraumatic, normocephalic, normal inspection - Eye Eye exam: Present: normal appearance, PERRL, EOMI - Chest Chest inspection: Present: normal inspection, symmetric chest wall rise - Respiratory Respiratory exam: Present: normal lung sounds bilaterally - Cardiovascular Cardiovascular exam: Present: regular rate, normal rhythm, normal heart sounds - Abdominal Exam Abdominal exam: Present: soft, Non-Tender. Absent: tenderness, distention, guarding, rebound, rigidity - Extremities Exam Extremities exam: Present: normal inspection, full ROM. Absent: tenderness, pedal edema - Neurological Exam Neurological exam: Present: alert, oriented X3 - Psychiatric Psychiatric exam: Present: normal affect, normal mood - Skin Skin exam: Present: warm, dry, intact, normal color Course Course Narrative: This is a 48-year-old diabetic female with chest pain concerning for acute coronary syndrome Vital Signs Temperature 98.4 F 03/01/18 15:55 Pulse Rate 72 03/01/18 15:55 Respiratory Rate 18 03/01/18 15:55 Blood Pressure 135/84 03/01/18 15:55 O2 Sat by Pulse Oximetry 99 03/01/18 15:55 Temperature 98.4 F 03/01/18 15:55 Pulse Rate 79 03/01/18 21:01 Respiratory Rate 16 03/01/18 21:01 Blood Pressure 95/61 03/01/18 21:01 O2 Sat by Pulse Oximetry 98 03/01/18 21:01 Oxygen Delivery Oxygen Delivery Room Air Medical Decision Making - MDM Narrative Medical decision making narrative: This is a 48-year-old female who has had intermittent chest pain during her stay here in the emergency department. Her pain appears to be difficult to control in that it continues to recur. She has had a negative troponin and has had a negative CT chest. Although her heart score is 3, I am concerned about the recurrence of her pain. I discussed her case with the on-call hospitalist, who accepted her for admission - Lab Data Lab results reviewed: Yes I reviewed the patient's lab results. Lab results narrative: CBC was unremarkable BMP was unremarkable Troponin was low D-dimer was slightly elevated at 649 Result diagrams: 03/01/18 16:09 03/01/18 16:09 Lab Results 03/01/18 03/01/18 03/01/18 Range/Units 16:09 16:09 17:36 WBC 7.6 (4.3-11.1) K/mcL RBC 5.03 H (3.82-4.97) M/mcL Hgb 14.3 (11.5-15.4) g/dL Hct 41.2 (35.3-44.9) % MCV 81.9 L (83.0-100.0) fL MCH 28.4 (28.0-33.3) pg MCHC 34.7 (31.6-35.5) g/dL RDW 13.4 (11.5-14.5) % Plt Count 171 (140-400) K/mcL MPV 9.9 (9.4-12.4) fL Immature Gran % 0.1 (0-4) % Seg Neutrophils % 52.8 % Lymphocytes % 38.0 % Monocytes % 5.4 % Eosinophils % 3.0 % Basophils % 0.7 % Neutrophils # 4.0 (1.6-8.9) K/mcL Lymphocytes # 2.9 (0.6-4.6) K/mcL Monocytes # 0.4 (0.0-1.3) K/mcL Eosinophils # 0.2 (0.0-0.6) K/mcL Basophils # 0.1 (0.0-0.2) K/mcL D-Dimer 649 H (0-500) ng/mLFEU Sodium 138 (136-145) mEq/L Potassium 3.7 (3.5-5.1) mEq/L Chloride 107 (98-107) mEq/L Carbon Dioxide 22 L (23-29) mEq/L BUN 10 (6-20) mg/dL Creatinine 0.79 (0.60-1.20) mg/dL Est GFR ( Amer) > 60 (> 60) Est GFR (Non-Af Amer) > 60 (> 60) BUN/Creatinine Ratio 13 (6-26) Glucose 130 H (70-105) mg/dL Calculated Osmolality 287 (280-300) Calcium 9.2 (8.6-10.3) mg/dL Troponin I < 0.03 (< 0.04) ng/mL 03/01/18 Range/Units 20:00 WBC (4.3-11.1) K/mcL RBC (3.82-4.97) M/mcL Hgb (11.5-15.4) g/dL Hct (35.3-44.9) % MCV (83.0-100.0) fL MCH (28.0-33.3) pg MCHC (31.6-35.5) g/dL RDW (11.5-14.5) % Plt Count (140-400) K/mcL MPV (9.4-12.4) fL Immature Gran % (0-4) % Seg Neutrophils % % Lymphocytes % % Monocytes % % Eosinophils % % Basophils % % Neutrophils # (1.6-8.9) K/mcL Lymphocytes # (0.6-4.6) K/mcL Monocytes # (0.0-1.3) K/mcL Eosinophils # (0.0-0.6) K/mcL Basophils # (0.0-0.2) K/mcL D-Dimer (0-500) ng/mLFEU Sodium (136-145) mEq/L Potassium (3.5-5.1) mEq/L Chloride (98-107) mEq/L Carbon Dioxide (23-29) mEq/L BUN (6-20) mg/dL Creatinine (0.60-1.20) mg/dL Est GFR ( Amer) (> 60) Est GFR (Non-Af Amer) (> 60) BUN/Creatinine Ratio (6-26) Glucose (70-105) mg/dL Calculated Osmolality (280-300) Calcium (8.6-10.3) mg/dL Troponin I < 0.03 (< 0.04) ng/mL - Radiology Data Radiology results reviewed: Yes I reviewed the patient's radiology results. Chest x-ray was unremarkable CTA chest showed no pulmonary embolism or pulmonary pathology. - EKG Data EKG #1 EKG attestation: Yes I reviewed and interpreted this EKG. EKG results narrative: ECG shows sinus rhythm, 60 bpm, normal intervals, normal axis, normal ST and T waves, essentially unchanged from 09/10/2017 Critical Care Time Critical Care Time: No
[2018-03-01 16:29] LABS: Basophils # 0.1 K/mcL (0.0-0.2); Basophils % 0.7 %; Eosinophils # 0.2 K/mcL (0.0-0.6); Hematocrit 41.2 % (35.3-44.9); Hemoglobin 14.3 g/dL (11.5-15.4); Immature Granulocytes % 0.1 % (0-4); Lymphocytes # 2.9 K/mcL (0.6-4.6); Mean Corpuscular HGB Conc 34.7 g/dL (31.6-35.5); Mean Corpuscular Hemoglobin 28.4 pg (28.0-33.3); Mean Corpuscular Volume 81.9 fL (83.0-100.0); Mean Platelet Volume 9.9 fL (9.4-12.4); Monocytes # 0.4 K/mcL (0.0-1.3); Monocytes % 5.4 %; Platelet Count 171 K/mcL (140-400); Red Blood Count 5.03 M/mcL (3.82-4.97); Red Cell Distribution Width 13.4 % (11.5-14.5); Segmented Neutrophils % 52.8 %
[2018-03-01 16:50] LABS: BUN/Creatinine Ratio 13 (6-26); Blood Urea Nitrogen 10 mg/dL (6-20); Calcium 9.2 mg/dL (8.6-10.3); Carbon Dioxide 22 mEq/L (23-29); Chloride 107 mEq/L (98-107); Glucose 130 mg/dL (70-105); Osmolality,Calculated 287 (280-300); Potassium 3.7 mEq/L (3.5-5.1); Sodium 138 mEq/L (136-145); eGFR For Non-African Americans > 60 (> 60)
[2018-03-01 16:51] LABS: Troponin I < 0.03 ng/mL (< 0.04)
[2018-03-01] MEDS ORDERED: *HR* Morphine 2 MG/ML SYRINGE IVP ONE ×2 (17:36→20:42)
[2018-03-01] MEDS ORDERED: Nitroglycerin 0.4 MG TAB.SUBL SL ONE (17:37)
[2018-03-01] MEDS ORDERED: Isovue-370 500 ML INFUS..BTL IV ONE (18:20)
[2018-03-01] MEDS ORDERED: Metoclopramide 10 MG/2 ML VIAL IVP ONE (20:41)
[2018-03-01] MEDS ORDERED: Naloxone 0.4 MG/ML INJ IVP PRN (23:56)
[2018-03-02] MEDS ORDERED: OXYCODONE Oral CONC 10 MG/0.5 ML ORAL.SYG SL ONE (00:37)
[2018-03-02 02:49] LABS: Hematocrit 39.9 % (35.3-44.9); Hemoglobin 13.4 g/dL (11.5-15.4); Mean Corpuscular HGB Conc 33.6 g/dL (31.6-35.5); Mean Corpuscular Hemoglobin 28.1 pg (28.0-33.3); Mean Corpuscular Volume 83.6 fL (83.0-100.0); Mean Platelet Volume 10.2 fL (9.4-12.4); Platelet Count 149 K/mcL (140-400); Red Blood Count 4.77 M/mcL (3.82-4.97); Red Cell Distribution Width 13.6 % (11.5-14.5)
[2018-03-02 03:02] LABS: BUN/Creatinine Ratio 13 (6-26); Blood Urea Nitrogen 10 mg/dL (6-20); Calcium 9.1 mg/dL (8.6-10.3); Carbon Dioxide 20 mEq/L (23-29); Chloride 107 mEq/L (98-107); Glucose 206 mg/dL (70-105); Osmolality,Calculated 291 (280-300); Potassium 3.1 mEq/L (3.5-5.1); Sodium 138 mEq/L (136-145); eGFR For Non-African Americans > 60 (> 60)
[2018-03-02] MEDS ORDERED: D5% in Water 1,000 ML IVC PRN (07:15)
[2018-03-02] MEDS ORDERED: Dextrose Gel 15 GM/37.5 ML TUBE PO PRN ×2 (07:15)
[2018-03-02] MEDS ORDERED: *HR* Dextrose 50 % in Water (Syg) 50 ML SYRINGE IVP PRN (07:15)
--- NOTE | 2018-03-02 07:19 | Internal Med History&Physical ---
Date of Encounter: 03/02/18 Time of Encounter: 04:20 Internal Medicine - H&P: HPI Chief complaint: Chest pain Admitted From: Emergency Dept Plans for Post Hospital Care: Home History of present illness: Ms. Colmenares is a 48 year old female Patient presented to the emergency room for chest pain that she had been experiencing for the past day or so, with increasing intensity just prior to arrival. She stated that she was putting away her [employer]in[employer] decorations and with moving up and downt the stairs she would have increased pain. She would take a break and her pain would improve, but not totally resolve. She came to the emergency room for further evaluation. In the ER patient's vital signs were stable. CBC and BMP were within normal limits. Troponin was undetectable. Chest x-ray showed no abnormalities. CTA was ordered due to slightly elevated d-dimer and was negative for PE or other acute process in the chest. EKG was normal sinus rhythm with no ST changes, unchanged from previous. She was admitted for further monitoring. Upon my assessment, patient states that she is chest pain free. She denies nausea, vomiting, diarrhea, constipation and abdominal pain as well. Past Med Surg Social Fam HX - Past Medical History Medical history: diabetes, GERD, hyperlipidemia, migraine, thyroid disease, other Additional medical history: pancreatitis Psychiatric history: depression - Past Surgical History Surgical History: cholecystectomy, hysterectomy, other Additional surgical history: right pinky ortho sx., tonsils - Social History Smoking Status: Never smoker Smokeless Tobacco Status: No Alcohol use: none Drug use: none - Family History Father Living Status: Still Living Hx Family Cardiac Disorders: Yes Hx Family Endocrine Disorder: Yes Mother Living Status: Hx Family Respiratory Disorders: Yes Hx Family Cancer: Yes (colon cancer) Internal Medicine - H&P: Meds FLUoxetine HCl [Fluoxetine HCl] 40 mg PO DAILY 09/10/17 [History] Gabapentin [Neurontin] 300 mg PO BID 09/10/17 [History] Insulin Glargine,Hum.rec.anlog [Basaglar Kwikpen U-100] 60 unit SQ HS 09/10/17 [History] Levothyroxine Sodium 88 mcg PO QAM 09/10/17 [History] Ondansetron HCl 4 mg PO Q72H PRN 09/10/17 [History] Oxybutynin [Ditropan] 5 mg PO BID 09/10/17 [History] Ropinirole HCl [Requip] 0.5 mg PO HS 09/10/17 [History] Topiramate [Topamax] 200 mg PO QAM 09/10/17 [History] Topiramate [Topamax] 400 mg PO QPM 09/10/17 [History] Ondansetron ODT [Zofran ODT] 4 mg SL Q8HR PRN #12 tab.rapdis 12/06/17 [Rx] Allergy/AdvReac Type Severity Reaction Status Date / Time ciprofloxacin [From Cipro] Allergy Rash Verified 03/01/18 15:59 prochlorperazine AdvReac Mild Irritable Verified 03/01/18 15:59 [From Compazine] atorvastatin [From Lipitor] AdvReac Muscle Pain Verified 03/01/18 15:59 fentanyl AdvReac Rash Verified 03/01/18 23:18 ketorolac [From Toradol] AdvReac Hypotension Verified 03/01/18 15:59 metoclopramide [From Reglan] AdvReac Confusion Verified 03/01/18 15:59 promethazine AdvReac Irritable Verified 03/01/18 15:59 All Systems PM: A 10-system review of systems was performed and is negative for pertinent findings except as documented above in the HPI. - Constitutional Vitals: Temp Pulse Resp BP Pulse Ox 97.7 F 64 16 93/63 95 03/02/18 03:11 03/02/18 03:11 03/02/18 03:11 03/02/18 03:11 03/02/18 03:11 General appearance: Present: cooperative, A&O X 3, pleasant, no acute distress, answers questions appropriately Exam: - - Head Head exam: Present: normal inspection - Eye Eye exam: Present: EOMI, normal appearance - Respiratory Respiratory exam: Present: CTAB. Absent: respiratory distress, wheezes - Cardiovascular Cardiovascular exam: Present: RRR. Absent: diastolic murmur, systolic murmur - GI/Abdominal GI/Abdominal exam: Present: normal bowel sounds, soft. Absent: tenderness - Extremities Exam Extremities exam: Present: warm, radial pulses palpable and symmetrical. Absent: calf tenderness, pedal edema, tenderness - Neurological Exam Neurological exam: Present: no focal deficits, strengths equal and symetr throughout. Absent: motor sensory deficit, facial droop, speech deficit - Skin Skin exam: Present: dry, normal color, warm Internal Med - H&P Results - Labs CBC & Chem 7: 03/02/18 02:22 03/02/18 02:22 Labs: Short CBC 03/01/18 03/02/18 Range/Units 16:09 02:22 WBC 7.6 6.5 (4.3-11.1) K/mcL Hgb 14.3 13.4 (11.5-15.4) g/dL Hct 41.2 39.9 (35.3-44.9) % Plt Count 171 149 (140-400) K/mcL Neutrophils # 4.0 (1.6-8.9) K/mcL BMP 03/01/18 03/02/18 16:09 02:22 Sodium 138 138 Potassium 3.7 3.1 L Chloride 107 107 Carbon Dioxide 22 L 20 L BUN 10 10 Creatinine 0.79 0.77 Glucose 130 H 206 H Calcium 9.2 9.1 Cardiac Enzymes 03/01/18 03/01/18 03/02/18 Range/Units 16:09 20:00 02:22 Troponin I < 0.03 < 0.03 < 0.03 (< 0.04) ng/mL - Impressions ITS Impressions Chest X-Ray 03/01/18 15:50 IMPRESSION: Stable normal chest. D/ / 03/01/2018 16:41:53 John Ramirez MD / [facility] Interpreting Provider: John Ramirez MD Chest CTA 03/01/18 18:20 IMPRESSION: No evidence of pulmonary embolism or other acute process in the chest. D/ / Eric Brock MD / Eric Brock MD Interpreting Provider: Eric Brock MD - Assessment and plan (1) Chest pain Current Visit: Yes Status: Acute Assessment and plan: Now resolved. Patient states that her father had a heart attack at 40 years old. 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 Qualifiers: Chest pain type: unspecified Qualified Code(s): R07.9 - Chest pain, unspecified (2) Diabetes Current Visit: No Status: Chronic Assessment and plan: Patient is diabetic, and takes insulin at home. Hold home meds Diabetic diet monitor sugars with meals and at night Low dose insulin sliding scale as needed. 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
[2018-03-02] MEDS: Insulin LISPRO 300 UNITS/3 ML VIAL SQ SCH ×2 (08:59→12:38)
[2018-03-02 11:15] VITALS: BP 96/55
[2018-03-02] MEDS ORDERED: Ondansetron ODT 4 MG TAB.RAPDIS SL PRN (14:12)
[2018-03-02] MEDS ORDERED: FLUoxetine 20 MG CAPSULE PO SCH (14:14)
[2018-03-02] MEDS ORDERED: Topiramate 100 MG TABLET PO SCH ×2 (14:15→18:00)
--- NOTE | 2018-03-02 14:18 | Discharge Summary ---
- NOTES TO OUTPATIENT PROVIDER Notes to Outpatient Provider: f/u with PCP within a week. Orders not resulted at time of discharge: Pending orders 03/01/18 15:50 ECG 12 lead ECG [ECG] Stat Date of Encounter: 03/02/18 Time of Encounter: 14:16 - Discharge Diagnosis (1) Chest pain Priority: Primary Status: Resolved Qualifiers: Chest pain type: unspecified Qualified Code(s): R07.9 - Chest pain, unspecified (2) Hypothyroidism Priority: Secondary Status: Chronic Qualifiers: Hypothyroidism type: unspecified Qualified Code(s): E03.9 - Hypothyroidism, unspecified (3) Bipolar 1 disorder Priority: Secondary Status: Chronic (4) HLD (hyperlipidemia) Priority: Secondary Status: Chronic Qualifiers: Hyperlipidemia type: unspecified Qualified Code(s): E78.5 - Hyperlipidemia, unspecified (5) GERD (gastroesophageal reflux disease) Priority: Secondary Status: Chronic Qualifiers: Qualified Code(s): K21.9 - Gastro-esophageal reflux disease without esophagitis (6) Diabetes Priority: Secondary Status: Chronic Qualifiers: Diabetes mellitus type: type 2 Diabetes mellitus senior care insulin use: with ferry terminal 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 Colmenares is a 48 year old female. Patient presented to the emergency room for chest pain that she had been experiencing for the past day or so, with increasing intensity just prior to arrival. She stated that she was putting away her [employer]in[employer] decorations and with moving up and down the stairs she would have increased pain. She would take a break and her pain would improve, but not totally resolve. She came to the emergency room for further evaluation. In the ER patient's vital signs were stable. CBC and BMP were within normal limits. Troponin was undetectable. Chest x-ray showed no abnormalities. CTA was ordered due to slightly elevated d-dimer and was negative for PE or other acute process in the chest. EKG was normal sinus rhythm with no ST changes, unchanged from previous. She was admitted for further monitoring. She had a stress nuclear test about 3 years ago which was negative for ischemia. ECHO today essentially normal except trival TR. Serial troponin were negative. Tele monitoring showed no acute ST-T changes. She will be discharged home today and f/u with PCP within a week. Discharge discussed with: patient Time spent discussing smoking cessation with patient: more than 10 minutes - Time Spent with Patient Total time spent providing and/or coordinating discharge services: Greater than 30 minutes - Discharge Medications Home Medications: FLUoxetine HCl [Fluoxetine HCl] 40 mg PO DAILY 09/10/17 [History] Gabapentin [Neurontin] 300 mg PO BID 09/10/17 [History] Insulin Glargine,Hum.rec.anlog [Basaglar Kwikpen U-100] 60 unit SQ HS 09/10/17 [History] Levothyroxine Sodium 88 mcg PO QAM 09/10/17 [History] Oxybutynin [Ditropan] 5 mg PO BID 09/10/17 [History] Ropinirole HCl [Requip] 0.5 mg PO HS 09/10/17 [History] Topiramate [Topamax] 200 mg PO QAM 09/10/17 [History] Topiramate [Topamax] 400 mg PO QPM 09/10/17 [History] Omeprazole [PriLOSEC] 40 mg PO DAILY 03/02/18 [History] Ondansetron ODT [Zofran ODT] 4 mg SL Q6HR PRN 03/02/18 [History] Allergies/Adverse Reactions: Allergy/AdvReac Type Severity Reaction Status Date / Time ciprofloxacin [From Cipro] Allergy Rash Verified 03/02/18 10:59 prochlorperazine AdvReac Mild Irritable Verified 03/02/18 10:59 [From Compazine] atorvastatin [From Lipitor] AdvReac See Verified 03/02/18 10:59 Comments fentanyl AdvReac Rash Verified 03/02/18 10:59 ketorolac [From Toradol] AdvReac Hypotension Verified 03/02/18 10:59 metoclopramide [From Reglan] AdvReac Confusion Verified 03/02/18 10:59 promethazine AdvReac Irritable Verified 03/02/18 10:59 Date of admission: 03/01/18 21:42 Primary care physician: Romaine Schmitt Anticipated date of discharge: 03/02/18 - Constitutional Vitals: Temp Pulse Resp BP Pulse Ox 98.5 F 68 16 96/55 96 03/02/18 11:14 03/02/18 11:14 03/02/18 11:14 03/02/18 11:14 03/02/18 11:14 General appearance: Present: cooperative, A&O X 3, pleasant, no acute distress, answers questions appropriately Exam: PHYSICAL EXAMINATION: GENERAL APPEARANCE: The patient is alert, oriented and in no acute distress. HEENT: Head is normocephalic. The sinuses are nontender. Pupils are equal and reactive. The nares are patent. Oropharynx clear without lesions. NECK: Supple without lymphadenopathy. HEART: Regular rate and rhythm. LUNGS: No crackles or wheezes are heard. ABDOMEN: Soft, nontender, nondistended with good bowel sounds heard. Inguinal area is normal. EXTREMITIES: Without cyanosis, clubbing or edema. NEUROLOGICAL: Gross nonfocal. SKIN: Warm and dry without any rash. - Patient Status Disposition: Home, Self-Care Condition: Good Functional capacity at discharge: independent ambulation Overall status at discharge: patient is progressing back to baseline - Discharge Instructions Follow Up With: Romaine Schmitt DO [Primary Care Provider] - Forms: ED Satisfaction Letter - Diet and Activity Activity: increase activity as tolerated Diet: diabetic diet
[2018-03-02] MEDS ORDERED: rOPINIRole 1 MG TABLET PO SCH (21:00)
[2018-03-02] MEDS ORDERED: Insulin LISPRO 300 UNITS/3 ML VIAL SQ SCH (21:00)
[2018-03-02] MEDS ORDERED: Gabapentin 300 MG CAPSULE PO SCH (21:00)
[2018-03-02] MEDS ORDERED: Insulin DETEMIR 100 UNIT/ML X5UNITS SQ SCH (21:00)
--- NOTE | 2018-03-05 09:26 | Electrocardiograph Report ---
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
== END 2018-03-02 15:55 | disposition home or self-care (01) ==
LOC: EMEROOARM 15:38 → 3BNU 15:38
PROVIDERS: ADMIT Family Medicine; ATTEND Family Medicine

== ENCOUNTER 2018-11-27 15:55 | Observation (INO) ==
--- NOTE | 2018-11-27 16:57 | Emergency Department Note ---
Disposition Clinical Impression: Pancreatitis, acute Qualifiers: Pancreatitis type: unspecified pancreatitis type Acute pancreatitis complication: unspecified Qualified Code(s): K85.90 - Acute pancreatitis without necrosis or infection, unspecified Disposition: Admitted As Inpatient Condition: Fair Forms: ED Satisfaction Letter Time of Disposition: 21:06 General Adult HPI - General Chief complaint: ED Nausea/Vomiting/Diarrhea Stated complaint: abd pain,vomiting Time Seen by Provider: 11/27/18 16:41 Nursing Notes Reviewed: Yes Vital Signs Reviewed: Yes - History of Present Illness HPI Narrative: Presents with epigastric and left upper quadrant abdominal pain which began gradually 2 days ago and is constant and dull with radiation to the back and has had similar pain in the past from pancreatic diverticulum. States her lipase levels are normally normal. She does have associated vomiting but no diarrhea. Denies any dysuria or urinary frequency, blood in the urine or stool, vaginal bleeding or discharge. Social history: No smoking, alcohol, drugs. Is here with her daughter Pain Scale: 7 - Related Data Home Medications Medication Instructions Recorded Confirmed FLUoxetine HCl [Fluoxetine HCl] 40 mg PO DAILY 09/10/17 11/27/18 Gabapentin [Neurontin] 300 mg PO BID 09/10/17 11/27/18 Insulin Glargine,Hum.rec.anlog 60 unit SQ 09/10/17 11/27/18 [Basaglar [place] U-100] Levothyroxine Sodium 88 mcg PO QAM 09/10/17 11/27/18 Oxybutynin [Ditropan] 5 mg PO BID 09/10/17 11/27/18 Ropinirole HCl [Requip] 0.5 mg PO HS 09/10/17 11/27/18 Topiramate [Topamax] 400 mg PO QPM 09/10/17 11/27/18 Omeprazole [PriLOSEC] 40 mg PO DAILY 03/02/18 11/27/18 Ondansetron ODT [Zofran ODT] 4 mg SL Q6HR PRN 03/02/18 11/27/18 Quetiapine Fumarate [SEROquel] 100 mg PO 11/27/18 11/27/18 Allergies Allergy/AdvReac Type Severity Reaction Status Date / Time ciprofloxacin [From Cipro] Allergy Rash Verified 03/25/18 12:22 prochlorperazine AdvReac Mild Irritable Verified 03/25/18 12:22 [From Compazine] atorvastatin [From Lipitor] AdvReac See Verified 03/25/18 12:22 Comments fentanyl AdvReac Rash Verified 03/25/18 12:22 ketorolac [From Toradol] AdvReac Hypotension Verified 03/25/18 12:22 metoclopramide [From Reglan] AdvReac Confusion Verified 03/25/18 12:22 promethazine AdvReac Irritable Verified 03/25/18 12:22 All systems ED: reviewed and negative except as stated. 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 EYES: PERRL, no scleral icterus. NOSE: The nose is normal in appearance without rhinorrhea RESP: Normal chest excursion with respiration; breath sounds clear and equal bilaterally; no wheezes, rhonchi, or rales CARD: Regular rhythm, without murmurs, rub or gallop ABD: Non-distended; normal appearance, moderate pain with palpation mid and left upper quadrant abdomen but soft without rigidity, rebound, guarding. Only very minimal discomfort palpation right upper quadrant non-tender, soft,without rigidity, rebound or guarding SKIN: Normal for age and race; warm and dry; no apparent lesions - General General appearance: alert, in no apparent distress Course Vital Signs Temperature 98.8 F 11/27/18 15:58 Pulse Rate 85 11/27/18 15:58 Respiratory Rate 16 11/27/18 15:58 Blood Pressure 115/80 11/27/18 15:58 O2 Sat by Pulse Oximetry 96 11/27/18 15:58 Temperature 98.8 F 11/27/18 16:20 Pulse Rate 78 11/27/18 18:28 Respiratory Rate 16 11/27/18 16:20 Blood Pressure 129/73 11/27/18 18:28 O2 Sat by Pulse Oximetry 100 11/27/18 18:28 Oxygen Delivery Oxygen Delivery Room Air Medical Decision Making - MDM Narrative Medical decision making narrative: Patient's symptoms could be from pancreatitis and labs including lipase are pending as well as CT scan and the patient is otherwise bright and alert and well in appearance 1658 I did review the patient's test results and CT scan suggestive of pancreatitis and patient does have epigastric pain and history of pancreatitis in the past and she does have intractable pain in the sense that she has had 2 doses of Dilaudid with improvement but not resolution of her pain is still has significant discomfort I did speak with the hospitalist accepts the patient for admission for management of acute pancreatitis 2104 - Medical Records Medical records reviewed: Yes I reviewed the patient's medical records. - Lab Data Lab results reviewed: Yes I reviewed the patient's lab results. Result diagrams: 11/27/18 16:51 11/27/18 16:51 Lab Results 11/27/18 11/27/18 11/27/18 Range/Units 16:20 16:51 16:51 WBC 5.7 (4.3-11.1) K/mcL RBC 4.47 (3.82-4.97) M/mcL Hgb 12.8 (11.5-15.4) g/dL Hct 37.3 (35.3-44.9) % MCV 83.4 (83.0-100.0) fL MCH 28.6 (28.0-33.3) pg MCHC 34.3 (31.6-35.5) g/dL RDW 13.0 (11.5-14.5) % Plt Count 131 L (140-400) K/mcL MPV 10.2 (9.4-12.4) fL Immature Gran % 0.4 (0-4) % Seg Neutrophils % 49.7 % Lymphocytes % 41.4 % Monocytes % 5.4 % Eosinophils % 2.6 % Basophils % 0.5 % Neutrophils # 2.8 (1.6-8.9) K/mcL Lymphocytes # 2.4 (0.6-4.6) K/mcL Monocytes # 0.3 (0.0-1.3) K/mcL Eosinophils # 0.2 (0.0-0.6) K/mcL Basophils # 0.0 (0.0-0.2) K/mcL Sodium 137 (136-145) mEq/L Potassium 3.5 (3.5-5.1) mEq/L Chloride 107 (98-107) mEq/L Carbon Dioxide 21 L (23-29) mEq/L BUN 8 (6-20) mg/dL Creatinine 0.68 (0.60-1.20) mg/dL Est GFR ( Amer) > 60 (> 60) Est GFR (Non-Af Amer) > 60 (> 60) BUN/Creatinine Ratio 12 (6-26) Glucose 249 H (70-105) mg/dL Calculated Osmolality 291 (280-300) Calcium 8.7 (8.6-10.3) mg/dL Total Bilirubin 0.6 (0.3-1.0) mg/dL Direct Bilirubin 0.1 (0.0-0.2) mg/dL Indirect Bilirubin 0.5 (0.0-1.2) mg/dL AST 31 (13-39) Units/L ALT 22 (7-52) Units/L Alkaline Phosphatase 101 (34-104) Units/L Serum Total Protein 7.1 (6.4-8.9) g/dL Albumin 4.1 (3.5-5.7) g/dL Globulin 3.0 (2.4-3.5) g/dL Albumin/Globulin Ratio 1.4 (1.1-2.2) Lipase 29 (11-82) Units/L Urine Color Yellow (Yellow) Urine Clarity Clear (Clear) Urine pH 7.0 (5.0-8.0) pH Units Ur Specific [place] 1.030 H (1.010-1.025) Urine Protein Trace (Neg-Trace) mg/dL Urine Glucose (UA) 500 H (Normal) mg/dL Urine Ketones Negative (Negative) mg/dL Urine Blood Negative (Negative) Urine Nitrite Negative (Negative) Urine Bilirubin Negative (Negative) Urine Urobilinogen Normal (Normal) mg/dL Ur Leukocyte Esterase Negative (Negative) Ur Culture Indicated? NO (NO) - Radiology Data Radiology results reviewed: Yes I reviewed the patient's radiology results.
[2018-11-27 17:03] LABS: Basophils % 0.5 %; Eosinophils # 0.2 K/mcL (0.0-0.6); Eosinophils % 2.6 %; Hematocrit 37.3 % (35.3-44.9); Hemoglobin 12.8 g/dL (11.5-15.4); Immature Granulocytes % 0.4 % (0-4); Lymphocytes # 2.4 K/mcL (0.6-4.6); Lymphocytes % 41.4 %; Mean Corpuscular HGB Conc 34.3 g/dL (31.6-35.5); Mean Corpuscular Hemoglobin 28.6 pg (28.0-33.3); Mean Corpuscular Volume 83.4 fL (83.0-100.0); Mean Platelet Volume 10.2 fL (9.4-12.4); Monocytes # 0.3 K/mcL (0.0-1.3); Monocytes % 5.4 %; Neutrophils # 2.8 K/mcL (1.6-8.9); Platelet Count 131 K/mcL (140-400); Red Blood Count 4.47 M/mcL (3.82-4.97); Segmented Neutrophils % 49.7 %; White Blood Count 5.7 K/mcL (4.3-11.1)
[2018-11-27 17:05] LABS: Bilirubin,Urine Negative (Negative); Blood,Urine Negative (Negative); Clarity,Urine Clear (Clear); Color,Urine Yellow (Yellow); Glucose,Urine (UA) 500 mg/dL (Normal); Ketones,Urine Negative (Negative); Leukocyte Esterase,Urine Negative (Negative); Nitrite,Urine Negative (Negative); Protein,Urine Trace mg/dL (Neg-Trace); Urobilinogen,Urine Normal (Normal)
[2018-11-27 17:25] LABS: BUN/Creatinine Ratio 12 (6-26); Blood Urea Nitrogen 8 mg/dL (6-20); Calcium 8.7 mg/dL (8.6-10.3); Carbon Dioxide 21 mEq/L (23-29); Chloride 107 mEq/L (98-107); Glucose 249 mg/dL (70-105); Osmolality,Calculated 291 (280-300); Potassium 3.5 mEq/L (3.5-5.1); Sodium 137 mEq/L (136-145); eGFR For African Americans > 60 (> 60); eGFR For Non-African Americans > 60 (> 60)
[2018-11-27] MEDS ORDERED: Ondansetron 4 MG/2 ML VIAL IVP ONE ×2 (17:38→19:25)
[2018-11-27] MEDS ORDERED: *HR* HYDROmorphone (PF) 1 MG/ML SYRINGE IVP ONE ×2 (17:40→19:25)
[2018-11-27] MEDS: 0.9 % Sodium Chloride 1,000 ML IVC SCH ×2 (17:50→18:27)
[2018-11-27 19:50] LABS: Alanine Aminotransferase 22 Units/L (7-52); Albumin 4.1 g/dL (3.5-5.7); Albumin/Globulin Ratio 1.4 (1.1-2.2); Alkaline Phosphatase 101 Units/L (34-104); Aspartate Amino Transferase 31 Units/L (13-39); Bilirubin,Direct 0.1 mg/dL (0.0-0.2); Bilirubin,Indirect 0.5 mg/dL (0.0-1.2); Bilirubin,Total 0.6 mg/dL (0.3-1.0); Lipase 29 Units/L (11-82); Total Protein 7.1 g/dL (6.4-8.9)
[2018-11-27] MEDS ORDERED: rOPINIRole 0.25 MG TABLET PO SCH (21:00)
[2018-11-27] MEDS ORDERED: Dextrose Gel 15 GM/37.5 ML TUBE PO PRN ×2 (21:00)
[2018-11-27] MEDS ORDERED: *HR* Dextrose 50 % in Water (Syg) 50 ML SYRINGE IVP PRN (21:00)
[2018-11-27] MEDS ORDERED: Acetaminophen 325 MG TABLET PO PRN (21:09)
[2018-11-27] MEDS: Gabapentin 300 MG CAPSULE PO SCH (22:11)
[2018-11-27] MEDS: Ringers Solution, Lactated 1,000 ML IVC SCH (22:12)
--- NOTE | 2018-11-27 22:15 | Internal Med History&Physical ---
Date of Encounter: 11/27/18 Time of Encounter: 22:14 Internal Medicine - H&P: HPI Admitted From: Home Plans for Post Hospital Care: Home History of present illness: Nica Colmenares is a 48 year old obese woman with diabetes, mood disorder and chronically recurrent abdominal pain issues reportedly secondary to pancreatic divisum of which I can find no radiologic record confirming this and is said to have had celiac plexus blocks in the past. On her admission last year she came in specifically requesting IV narcotics with diphenhydramine. She comes in to the ER today complaining of 2 days of epigastric and left upper quadrant abdominal pain that she described as dull with radiation to her back. She reported associated vomiting and diarrhea preceding the pain but denies dysuria and pollakiuria. She denies smoking, alcohol and illicit drug use. In the ER her physical exam was not significant, remarkable only for very minimal discomfort to palpation. Lab work including urine studies, LFTs and lipase within normal limits. She requested diphenhydramine and hydromorphone be administered to her which was done in the emergency room. CT scan showed mild sigmoid diverticulosis without diverticulitis, mild cirrhosis and question of mild early pancreatitis but recommended to correlate with amylase/lipase. She was referred for admission. At the time of my assessment, Vitals: Reviewed General: Obese white woman sitting up in bed in no acute distress Skin: Warm and dry. HEENT: Moist mucous membranes. No conjunctivae pallor. Neck: No lymphadenopathy. No JVD. No carotid bruits. No palpable thyroid. Chest: Normal thoracic expansion. Normal breath sounds. Clear to auscultation. Heart: Normal S1 & S2; rhythmic. No rubs or murmurs. Abdomen: Non-distended, soft and seemingly tender on the left upper quadrant with with only touching the skin and not even palpating. Extremities: No clubbing, cyanosis or edema. No calf tenderness. Normal distal pulses. Neurological: Awake, alert and oriented to person, place and time. No focal deficits. Psych: Affect appropriate. Assessment/Plan 1. Abdominal pain: The etiology is not confirmed as of yet. While her clinical exam and lab findings are not suggestive of acute pancreatitis, there is radiologic report of mild fat stranding surrounding the head and neck of the pancreas. Unfortunately this is also compounded by concerns of drug-seeking behavior as she tells me what works is dilaudid or morphine with Benadryl. 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 Will keep her NPO, provide oral analgesics and antiemetics as needed based on reported pain severity, PPI, fluid resuscitation and continued clinical monitoring. 2. Diabetes: Unknown state of current control. Will have her on insulin sliding scale in the interim. 3. Mood disorder: On quetiapine. 4. Hypothyroidism: On levothyroxine. Past Med Surg Social Fam HX - Past Medical History Medical history: diabetes, GERD, hyperlipidemia, migraine, thyroid disease, other Additional medical history: pancreatic disease Psychiatric history: depression - Past Surgical History Surgical History: cholecystectomy, hysterectomy, other Additional surgical history: Foot sx, Back ssx - Social History Smoking Status: Never smoker Smokeless Tobacco Status: No Alcohol use: none Drug use: none - Family History Father Living Status: Still Living Hx Family Cardiac Disorders: Yes Hx Family Endocrine Disorder: Yes Mother Living Status: Hx Family Respiratory Disorders: Yes Hx Family Cancer: Yes (colon cancer) Internal Medicine - H&P: Meds FLUoxetine HCl [Fluoxetine HCl] 40 mg PO DAILY 09/10/17 [History] Gabapentin [Neurontin] 300 mg PO BID 09/10/17 [History] Insulin Glargine,Hum.rec.anlog [Basaglar Kwikpen U-100] 60 unit SQ HS 09/10/17 [History] Levothyroxine Sodium 88 mcg PO QAM 09/10/17 [History] Oxybutynin [Ditropan] 5 mg PO BID 09/10/17 [History] Ropinirole HCl [Requip] 0.5 mg PO HS 09/10/17 [History] Topiramate [Topamax] 400 mg PO QPM 09/10/17 [History] Omeprazole [PriLOSEC] 40 mg PO DAILY 03/02/18 [History] Ondansetron ODT [Zofran ODT] 4 mg SL Q6HR PRN 03/02/18 [History] Quetiapine Fumarate [SEROquel] 100 mg PO HS 11/27/18 [History] Allergy/AdvReac Type Severity Reaction Status Date / Time ciprofloxacin [From Cipro] Allergy Rash Verified 03/25/18 12:22 prochlorperazine AdvReac Mild Irritable Verified 03/25/18 12:22 [From Compazine] atorvastatin [From Lipitor] AdvReac See Verified 03/25/18 12:22 Comments fentanyl AdvReac Rash Verified 03/25/18 12:22 ketorolac [From Toradol] AdvReac Hypotension Verified 03/25/18 12:22 metoclopramide [From Reglan] AdvReac Confusion Verified 03/25/18 12:22 promethazine AdvReac Irritable Verified 03/25/18 12:22 All Systems PM: A 10-system review of systems was performed and is negative for pertinent findings except as documented above in the HPI. - Constitutional Vitals: Temp Pulse Resp BP Pulse Ox 97.7 F 75 17 112/70 98 11/27/18 21:40 11/27/18 21:40 11/27/18 21:40 11/27/18 21:40 11/27/18 21:40 Exam: . Internal Med - H&P Results - Labs CBC & Chem 7: 11/27/18 16:51 11/27/18 16:51 Labs: Short CBC 11/27/18 Range/Units 16:51 WBC 5.7 (4.3-11.1) K/mcL Hgb 12.8 (11.5-15.4) g/dL Hct 37.3 (35.3-44.9) % Plt Count 131 L (140-400) K/mcL Neutrophils # 2.8 (1.6-8.9) K/mcL BMP 11/27/18 16:51 Sodium 137 Potassium 3.5 Chloride 107 Carbon Dioxide 21 L BUN 8 Creatinine 0.68 Glucose 249 H Calcium 8.7 Liver Function 11/27/18 Range/Units 16:51 Total Bilirubin 0.6 (0.3-1.0) mg/dL Direct Bilirubin 0.1 (0.0-0.2) mg/dL AST 31 (13-39) Units/L ALT 22 (7-52) Units/L Alkaline Phosphatase 101 (34-104) Units/L Albumin 4.1 (3.5-5.7) g/dL Urine 11/27/18 Range/Units 16:20 Urine Color Yellow (Yellow) Urine Clarity Clear (Clear) Urine pH 7.0 (5.0-8.0) pH Units Ur Specific [place] 1.030 H (1.010-1.025) Urine Protein Trace (Neg-Trace) mg/dL Urine Glucose (UA) 500 H (Normal) mg/dL - Impressions ITS Impressions Abdomen/Pelvis CT 11/27/18 18:51 IMPRESSION: Question of mild early acute pancreatitis. Recommend correlation with amylase lipase. Mild cirrhosis. Mild sigmoid diverticulosis without acute diverticulitis. D/ / Jesu Modi MD / Jesu Modi MD Interpreting Provider: Jesu Modi MD - Time Spent With Patient Total time spent is greater than 50% in coordination of care (as documented) at patient's floor/unit and/or counseling patient:
[2018-11-27] MEDS ORDERED: FLUoxetine 20 MG CAPSULE PO SCH (22:30)
[2018-11-28] MEDS: Insulin LISPRO 300 UNITS/3 ML VIAL SQ SCH ×3 (00:12→13:04)
[2018-11-28] MEDS: Ringers Solution, Lactated 1,000 ML IVC SCH (03:28)
[2018-11-28] MEDS: Ondansetron ODT 4 MG TAB.RAPDIS SL PRN ×2 (04:12→14:02)
--- NOTE | 2018-11-28 05:35 | Event Note ---
Date of Encounter: 11/28/18 Time of Encounter: 03:47 Alerted by pts. nurses Louise and Alyx, RNs that the pt. was admitted for abdominal pain and nausea. Patient came to ED requesting Dilaudid, morphine, and Benadryl. Patient had received LR via IV and was not complaining of itching. Patient requested IV Benadryl 50 mg. One-time order for IV Benadryl 25 mg ordered. Spoke to the pts. nurse Alyx and instructed her that there was concern from previous admission notes that the pt. may be drug-seeking. I informed the pts. nurse that Tylenol and Ofirmev would be my pain medications of choice for this pt. to control her pain. Patient's lab abnormals consisted of a platelet count of 131, carbon dioxide 21, and glucose of 249. Patient CT of the abdomen/pelvis without contrast showed questionable mild early acute pancreatitis with recommendation correlation with amylase lipase, mild cirrhosis, and mild sigmoid diverticulosis without acute diverticulitis. Nurse instructed to continue monitoring this pt. closely and alert me immediately of any adverse changes or problems regarding pain medications so that I may educate the pt.
[2018-11-28] MEDS ORDERED: Acetaminophen IV 1,000 MG/100 ML INFUS..BTL IVPB ONE (06:21)
[2018-11-28] MEDS ORDERED: Ondansetron 4 MG/2 ML VIAL IVP ONE (06:22)
[2018-11-28] MEDS: 0.9 % Sodium Chloride 1,000 ML IVC SCH (08:23)
[2018-11-28] MEDS ORDERED: traMADol 50 MG TABLET PO ONE (09:13)
[2018-11-28] MEDS ORDERED: traMADol 50 MG TABLET PO PRN (09:41)
[2018-11-28] MEDS: Gabapentin 300 MG CAPSULE PO SCH (09:41)
--- NOTE | 2018-11-28 09:41 | Internal Med Progress Note ---
Hospitalist Progress Note - Encounter Date of Encounter: 11/28/18 Time of Encounter: 09:35 - Subjective Interval History: No acute events. Abdominal pain not controlled. Denies fevers/chills. Has some nausea. Had several days of loose stools about 6-7 per day. - Exam Vitals: Temp Pulse Resp BP Pulse Ox 98.0 F 68 16 90/60 96 11/28/18 06:27 11/28/18 06:27 11/28/18 06:27 11/28/18 06:11/28/18 06:27 Exam: . - Assessment and Plan (1) Abdominal pain Current Visit: No Status: Acute Assessment and Plan: Unsure etiology. LFTs, lipase unremarkable. CT showed mild cirrhosis, questionable mild early pancreatitis. With 6-7 BM of loose stool per day after eating [employer] there is some concern for gastroenteritis. Patient states she has a complicated history with pancreas divisum. Requesting records from [place], keep NPO, consult GI. Reviewed notes from admission and overnight, will do Ofirmev/Ultram for pain control, Zofran prn nausea/vomiting. IV fluids. (2) DVT prophylaxis Current Visit: No Status: Acute Assessment and Plan: Heparin SQ (3) Bipolar 1 disorder Current Visit: No Status: Chronic (4) Diabetes Current Visit: No Status: Chronic Assessment and Plan: ISS Q6H while NPO (5) GERD (gastroesophageal reflux disease) Current Visit: No Status: Chronic (6) HLD (hyperlipidemia) Current Visit: No Status: Chronic (7) Hypothyroidism Current Visit: No Status: Chronic - Time Spent with Patient Total time spent is greater than 50% in coordination of care (as documented) at patient's floor/unit and/or counseling patient: Internal Medicine: Result - Labs CBC & Chem 7: 11/27/18 16:51 11/27/18 16:51 Labs: Short CBC 11/27/18 Range/Units 16:51 WBC 5.7 (4.3-11.1) K/mcL Hgb 12.8 (11.5-15.4) g/dL Hct 37.3 (35.3-44.9) % Plt Count 131 L (140-400) K/mcL Neutrophils # 2.8 (1.6-8.9) K/mcL BMP 11/27/18 16:51 Sodium 137 Potassium 3.5 Chloride 107 Carbon Dioxide 21 L BUN 8 Creatinine 0.68 Glucose 249 H Calcium 8.7 Liver Function 11/27/18 Range/Units 16:51 Total Bilirubin 0.6 (0.3-1.0) mg/dL Direct Bilirubin 0.1 (0.0-0.2) mg/dL AST 31 (13-39) Units/L ALT 22 (7-52) Units/L Alkaline Phosphatase 101 (34-104) Units/L Albumin 4.1 (3.5-5.7) g/dL Urine 11/27/18 Range/Units 16:20 Urine Color Yellow (Yellow) Urine Clarity Clear (Clear) Urine pH 7.0 (5.0-8.0) pH Units Ur Specific [place] 1.030 H (1.010-1.025) Urine Protein Trace (Neg-Trace) mg/dL Urine Glucose (UA) 500 H (Normal) mg/dL - Impressions Impressions Abdomen/Pelvis CT 11/27/18 18:51 IMPRESSION: Question of mild early acute pancreatitis. Recommend correlation with amylase lipase. Mild cirrhosis. Mild sigmoid diverticulosis without acute diverticulitis. 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
--- NOTE | 2018-11-28 11:48 | Gastroenterology Consult Note ---
<Francisco Rodriguez - Last Filed: 11/28/18 11:44> Date of Encounter: 11/28/18 Time of Encounter: 10:45 - Assessment and plan (1) Pancreatitis, acute Current Visit: Yes Status: Acute Assessment and plan: CT A/P with questionable early pancreatitis with mild infiltration of fat surrounding the head and neck of pancreas, mild cirrhosis. TB 0.6, AST 31, ALT 22, AP 101, Lipase 29. Continue pain control and anti-emetics. Start clear liquid diet and advance as tolerated. Qualifiers: Pancreatitis type: unspecified pancreatitis type Acute pancreatitis complication: unspecified Qualified Code(s): K85.90 - Acute pancreatitis without necrosis or infection, unspecified (2) Pancreatic divisum Current Visit: No Status: Acute Assessment and plan: Pt reports history of pancreatic divisum, and states she is receiving treatment once per year at [facility]. Patient has had 18 CT A/P at [place] since 05/15/2015 with no abnormality noted to pancreas. No MRIs have been completed here. Patient reports having MRI and celiac plexus blocks completed at [facility]. (3) Abdominal pain Current Visit: No Status: Acute Qualifiers: Abdominal location: upper abdomen, unspecified Qualified Code(s): R10.10 - Upper abdominal pain, unspecified (4) Cirrhosis Current Visit: Yes Status: Acute Assessment and plan: Unable to calculate MELD-Na or Child-Lemus scores. CT A/P showed mild cirrhosis. She denies ETOH use. Complete liver work up (AFP, alpha-1 antitrypsin, RENE, ANCA, ceruloplasmin, F actin, ferritin, hepatitis profile, AMA, PT/INR). Complete EGD as outpatient to r/o varices. Lifestyle Changes: 1. Total abstinence from alcohol including social drinking. 2. No smoking. 3. Gradual loss of weight. 4. Drink at least 3 cups of coffee due to its antioxidant effects in the liver, it reduces risk of HCC and advance fibrosis. 5. If needed, use less than 2 g/day of Tylenol (in divided doses). 6. Vaccination for Hep A, B, Pneumococcus if not already received and yearly influenza vaccination by PCP. 7. Avoid NSAIDS as can cause kidney damage. 8. Avoid benzodiazepines and other sedatives such as anti-histamines, narcotics etc. as can cause encephalopathy or confusion. 9. Take a late carbohydrate meal supplement as it reduces glucose production from protein breakdown and thus improves nutrition. 10. In cirrhosis, statins are safe to use and also improve portal hypertension and decrease risk of HCC. 11. Screening: Hepatocellular cancer screening: US of liver and AFP every 6 months Qualifiers: Hepatic cirrhosis type: unspecified hepatic cirrhosis Ascites presence: without ascites Qualified Code(s): K74.60 - Unspecified cirrhosis of liver - Time Spent With Patient Total time spent is greater than 50% in coordination of care (as documented) at patient's floor/unit and/or counseling patient: GI History of Present Illness - Data of Consult Patient: known to practice within the last 3 years Consult date: 11/28/18 Requesting Physician: Marco Antonio Chatterjee MD - Consult Narrative Reason for consult: Abdominal pain History of present illness: Ms. Colmenares is a 48 year old female with PMHx of DM, pancreatic divisum, chronic abdominal pain, GERD, HLD, migraine, thyroid disease who presented to the ED with abdominal pain. CT A/P with questionable early pancreatitis with mild infiltration of fat surrounding the head and neck of pancreas, mild cirrhosis. She denies any alcohol use. LFTs and lipase within normal limits. Platelets are slightly low at 131. Pt reports having celiac nerve blocks about once per year at [facility], last was about 1 year ago. She reports taking omeprazole 40 mg daily for "several years" which controls her reflux well. Procedures: EUS 08/17/2016 Dr. Alejo, [facility]: imaging of the pancreas showed sonographic changes suggestive of mild to moderate chronic pancreatitis, celiac plexus neurolysis performed in the ganglia by injecting 2 mL of bupivacaine first followed by 1 mL of alcohol each ganglion separately to total 5 mL of alcohol and 20 m< liters of bupivacaine. EGD 02/18/2014 Dr. Rasheed: Normal Esophageal manometry 01/09/2013 Dr. Menjivar: Normal EGD 12/29/2012 Dr. Menjivar: Normal NSAIDs: None Anticoagulation: None Past Med Surg Social Fam HX - Past Medical History Medical history: diabetes, GERD, hyperlipidemia, migraine, thyroid disease, other Additional medical history: pancreatic disease, depression Psychiatric history: depression - Past Surgical History Surgical History: cholecystectomy, hysterectomy Additional surgical history: Foot sx, Back ssx - Social History Smoking Status: Never smoker Smokeless Tobacco Status: No Alcohol use: none Drug use: none - Family History Father Living Status: Still Living Hx Family Cardiac Disorders: Yes Hx Family Endocrine Disorder: Yes Mother Living Status: Hx Family Respiratory Disorders: Yes Hx Family Cancer: Yes (colon cancer) - Gastrointestinal Gastrointestinal: Present: as per HPI - Constitutional Constitutional: as per HPI - EENT Eyes: as per HPI Ears: Present: as per HPI Nose, mouth and throat: Present: as per HPI - Cardiovascular Cardiovascular ROS: Present: as per HPI - Respiratory Respiratory IM: Present: as per HPI - Genitourinary Genitourinary: Absent: change in color, Urinary frequency - Neurological ROS Neurological GI: Present: as per HPI - Hematologic/Lymphatic Hematologic/Lymphatic pediatric: Present: as per HPI - Musculoskeletal Musculoskeletal ROS GI: Present: as per HPI - Integumentary Integumentary GI: Present: as per HPI - Psychiatric ROS Psychiatric GI: Present: as per HPI - Endocrine Endocrine IM: Present: as per HPI - Constitutional Vitals: Temp Pulse Resp BP Pulse Ox 98.1 F 64 16 94/65 95 11/28/18 10:01 11/28/18 10:01 11/28/18 10:01 11/28/18 10:01 11/28/18 10:01 General appearance: Present: cooperative, A&O X 3, no acute distress, answers questions appropriately - Head Head exam: Present: atraumatic, normocephalic - Eye Eye exam: Present: normal appearance, sclera anicteric - ENT ENT exam: Present: mucous membranes moist - Neck Neck exam general surgery: Present: normal inspection, trachea midline - Respiratory Respiratory exam: Present: CTAB. Absent: rales, rhonchi - Cardiovascular Cardiovascular exam: Present: RRR, +S1, +S2 - GI/Abdominal GI/Abdominal exam: Present: soft, tenderness (mild epigastric LUQ tenderness), no peritoneal signs. Absent: distended, firm, guarding - Rectal Rectal exam: Present: deferred - Extremities Exam Extremities exam: Present: warm - Neurological Exam Neurological exam: Present: no focal deficits - Psychiatric Psychiatric exam: Present: normal affect, normal mood - Skin Skin exam: Present: dry, intact, normal color, warm Results - Labs CBC & Chem 7: 11/27/18 16:51 11/27/18 16:51 - Impressions Impressions Abdomen/Pelvis CT 11/27/18 18:51 IMPRESSION: Question of mild early acute pancreatitis. Recommend correlation with amylase lipase. Mild cirrhosis. Mild sigmoid diverticulosis without acute diverticulitis. D/ / Jesu Modi MD / Jesu Modi MD Interpreting Provider: Jesu Modi MD Consult Discharge Plan - Plan Referrals: Fátima Brock [Primary Care Provider] - <Poonam Menjivar - Last Filed: 11/28/18 14:09> Date of Encounter: 11/28/18 Time of Encounter: 13:00 - Time Spent With Patient Total time spent is greater than 50% in coordination of care (as documented) at patient's floor/unit and/or counseling patient: GI History of Present Illness - Data of Consult Requesting Physician: Marco Antonio Chatterjee MD - Consult Narrative History of present illness: Ms. Colmenares is a 48 year old female - Constitutional Vitals: Temp Pulse Resp BP Pulse Ox 98.1 F 64 16 94/65 95 11/28/18 10:01 11/28/18 10:01 11/28/18 10:01 11/28/18 10:01 11/28/18 10:01 Results - Labs CBC & Chem 7: 11/27/18 16:51 11/27/18 16:51 Labs: Last Result 11/28/18 12:41 Ferritin 19 Entire Visit 11/28/18 11/28/18 12:41 12:41 PT 12.6 H Ferritin 19 - ABG ABG results: PT/INR, D-dimer PT 12.6 Seconds (9.4-12.1) H 11/28/18 12:41 - Impressions Impressions Abdomen/Pelvis CT 11/27/18 18:51 IMPRESSION: Question of mild early acute pancreatitis. Recommend correlation with amylase lipase. Mild cirrhosis. Mild sigmoid diverticulosis without acute diverticulitis. D/ / Jesu Modi MD / Jesu Modi MD Interpreting Provider: Jesu Modi MD - Attending Attestation I examined this patient and my medical decision-making was reviewed with the [employer]. I agree with the documented findings, disposition and treatment plan as described except to the extent set forth below. Patient seen. Denies any previous history of cirrhosis does has chronic abdominal pain. On examination: Abdomen is soft. Assessment: Patient with a history of pancreatic divisum with chronic abdominal pain. #2 cirrhosis most probably Zelaya but rule out other etiology. Recommendation: Workup of cirrhosis follow-up with GI as an outpatient,
[2018-11-28 13:05] LABS: INR 1.1; Prothrombin Time 12.6 Seconds (9.4-12.1)
[2018-11-28 14:00] LABS: Hepatitis B Surface Antigen Nonreactive (Nonreactive)
[2018-11-28 14:28] LABS: Hepatitis B Core IgM Nonreactive (Nonreactive)
[2018-11-28 14:30] LABS: Hepatitis C Virus Antibody Nonreactive (Nonreactive)
[2018-11-28 14:31] LABS: Hepatitis A Antibody IgM Nonreactive (Nonreactive)
[2018-11-28 14:44] VITALS: BP 114/76
--- NOTE | 2018-11-28 16:07 | Discharge Summary ---
- NOTES TO OUTPATIENT PROVIDER Notes to Outpatient Provider: Follow-up to be coordinated with GI. Orders not resulted at time of discharge: Pending orders 11/28/18 09:36 Culture,Stool [RM] Routine GI Panel,Stool [MOLMIC] Routine 11/28/18 12:41 AFP Tumor Marker Non- Routine RENE IgG MILE rflx IFA Routine [id number] Routine Ceruloplasmin Routine F-Actin IgG Reflex Sm Muscle Routine MPO/PR3 (ANCA) Antibodies Routine Mitochondrial M2 Antibody, IgG Routine Date of Encounter: 11/28/18 Time of Encounter: 16:05 - Discharge Diagnosis (1) Abdominal pain Priority: Primary Status: Acute Qualifiers: Abdominal location: upper abdomen, unspecified Qualified Code(s): R10.10 - Upper abdominal pain, unspecified (2) DVT prophylaxis Priority: Secondary Status: Acute (3) Bipolar 1 disorder Priority: Secondary Status: Chronic (4) Diabetes Priority: Secondary Status: Chronic Qualifiers: Diabetes mellitus type: type 2 Diabetes mellitus snf insulin use: with intermediate card tender use Diabetes mellitus complication status: without complication Qualified Code(s): E11.9 - Type 2 diabetes mellitus without complications; Z79.4 - ad terminal makeup operator (current) use of insulin (5) GERD (gastroesophageal reflux disease) Priority: Secondary Status: Chronic Qualifiers: Qualified Code(s): K21.9 - Gastro-esophageal reflux disease without esophagitis (6) HLD (hyperlipidemia) Priority: Secondary Status: Chronic Qualifiers: Hyperlipidemia type: unspecified Qualified Code(s): E78.5 - Hyperlipidemia, unspecified (7) Hypothyroidism Priority: Secondary Status: Chronic Qualifiers: Hypothyroidism type: unspecified Qualified Code(s): E03.9 - Hypothyroidism, unspecified Hospital course: Ms. Colmenares is a 48 year old female presented to ED for abdominal pain. Patient states this has been going on for 2 days in her left upper abdominal quadrant. Pain was dull radiating to her back. She states she has a history of pancreatic divisum which has caused her issues in the past. She had workup done including LFTs, lipase, CBC, BMP which were within normal limits. A CT scan showed mild cirrhosis and a possible mild early pancreatitis. She complained of two days of several loose bowel movements, about 6-7 per day after eating [employer] nuggets. No sick contacts with similar symptoms, no fevers/chills. She was admitted for further workup and management. She was given IV fluid hydration. GI was consulted. Patient was able to advance her diet without issue. She had ultrasound of liver and lab workup obtained by GI for follow-up. Patient symptoms improved. She was discharged to home in stable condition. - Time Spent with Patient Total time spent providing and/or coordinating discharge services: - Discharge Medications Prescriptions: Continued Topiramate [Topamax] 400 mg PO QPM FLUoxetine HCl [Fluoxetine HCl] 40 mg PO DAILY Ropinirole HCl [Requip] 0.5 mg PO HS Insulin Glargine,Hum.rec.anlog [Basaglar Kwikpen U-100] 60 unit SQ HS Gabapentin [Neurontin] 600 mg PO BID Levothyroxine Sodium 88 mcg PO QAM Ondansetron ODT [Zofran ODT] 4 mg SL Q8HR PRN PRN Reason: Nausea Omeprazole [PriLOSEC] 40 mg PO DAILY Quetiapine Fumarate [Seroquel] 100 mg PO HS Linagliptin/Metformin HCl [Jentadueto Xr 5 mg-1,000 mg Tb] 1 tab PO QAM Ibuprofen 800 mg PO TID PRN PRN Reason: Pain Home Medications: FLUoxetine HCl [Fluoxetine HCl] 40 mg PO DAILY 09/10/17 [History] Gabapentin [Neurontin] 600 mg PO BID 09/10/17 [History] Insulin Glargine,Hum.rec.anlog [Basaglar Kwikpen U-100] 60 unit SQ HS 09/10/17 [History] Levothyroxine Sodium 88 mcg PO QAM 09/10/17 [History] Ropinirole HCl [Requip] 0.5 mg PO HS 09/10/17 [History] Topiramate [Topamax] 400 mg PO QPM 09/10/17 [History] Omeprazole [PriLOSEC] 40 mg PO DAILY 03/02/18 [History] Ondansetron ODT [Zofran ODT] 4 mg SL Q8HR PRN 03/02/18 [History] Quetiapine Fumarate [Seroquel] 100 mg PO HS 11/27/18 [History] Ibuprofen 800 mg PO TID PRN 11/28/18 [History] Linagliptin/Metformin HCl [Jentadueto Xr 5 mg-1,000 mg Tb] 1 tab PO QAM 11/28/18 [History] Allergies/Adverse Reactions: Allergy/AdvReac Type Severity Reaction Status Date / Time ciprofloxacin [From Cipro] Allergy Rash Verified 03/25/18 12:22 prochlorperazine AdvReac Mild Irritable Verified 03/25/18 12:22 [From Compazine] atorvastatin [From Lipitor] AdvReac See Verified 03/25/18 12:22 Comments fentanyl AdvReac Rash Verified 03/25/18 12:22 ketorolac [From Toradol] AdvReac Hypotension Verified 03/25/18 12:22 metoclopramide [From Reglan] AdvReac Confusion Verified 03/25/18 12:22 promethazine AdvReac Irritable Verified 03/25/18 12:22 Date of admission: 11/27/18 21:14 Primary care physician: Fátima Brock Consults: 11/28/18 09:42 Consult to Gastroenterology [CONS] Routine Consulting Provider: Gastroenterology Candace Reason for Consult: abdominal pain unknown etiology Call Completed: Yes Discharging clinician: Marco Antonio Chatterjee - Constitutional Vitals: Temp Pulse Resp BP Pulse Ox 98.2 F 59 15 114/76 95 11/28/18 14:43 11/28/18 14:43 11/28/18 14:43 11/28/18 14:43 11/28/18 14:43 Exam: . - Patient Status Disposition: Home, Self-Care Condition: Fair Functional capacity at discharge: independent ambulation Overall status at discharge: patient is back to baseline - Discharge Instructions Follow Up With: Fátima Brock [Primary Care Provider] - - Diet and Activity Activity: increase activity as tolerated Diet: advance to your usual diet
[2018-11-28] MEDS ORDERED: Topiramate 100 MG TABLET PO SCH (18:00)
[2018-11-28] MEDS ORDERED: *HR* Heparin 5,000 UNIT/ML VIAL SQ SCH (18:00)
[2018-11-30 10:05] LABS: AFP Tumor Marker Non-Pregnant 2 ng/mL (0-9)
[2018-12-01 10:11] LABS: Serine Protease-3 Antibody 0 AU/mL (0-19)
[2018-12-01 10:12] LABS: ANA IgG by ELISA DETECTED (None Detected); F-Actin (sm muscle) Ab IgG 12 Units (0-19)
[2018-12-01 18:48] LABS: ANA HEp-2 IgG IFA <1:80 (<1:80)
== END 2018-11-28 17:10 | disposition home or self-care (01) ==
LOC: EMEROOARM 15:55 → 3ANU 15:55 → SUATTDRO 21:14 → 3ANU 21:34
PROVIDERS: ADMIT Internal Medicine; ATTEND Student in an Organized Health Care Education/Training Program

== ENCOUNTER 2021-01-20 16:13 | Observation (INO) ==
[2021-01-20] MEDS ORDERED: Isovue-370 500 ML BOTTLE IVP ONE (18:43)
[2021-01-20] MEDS ORDERED: 0.9 % Sodium Chloride 1,000 ML IVC ONE (18:43)
[2021-01-20] MEDS ORDERED: Morphine Sulfate 2 MG/ML SYRINGE IVP ONE ×2 (18:44→23:36)
[2021-01-20] MEDS ORDERED: Ondansetron 4 MG/2 ML VIAL IVP ONE (18:44)
[2021-01-20 19:03] LABS: Basophils % 0.4 %; Eosinophils # 0.1 K/mcL (0.0-0.6); Eosinophils % 1.3 %; Hematocrit 35.1 % (35.3-44.9); Hemoglobin 11.8 g/dL (11.5-15.4); Immature Granulocytes % 0.2 % (0-4); Lymphocytes # 1.4 K/mcL (0.6-4.6); Lymphocytes % 29.2 %; Mean Corpuscular HGB Conc 33.6 g/dL (31.6-35.5); Mean Corpuscular Hemoglobin 27.9 pg (28.0-33.3); Mean Platelet Volume 10.7 fL (9.4-12.4); Monocytes # 0.3 K/mcL (0.0-1.3); Platelet Count 148 K/mcL (140-400); Red Blood Count 4.23 M/mcL (3.82-4.97); Red Cell Distribution Width 14.1 % (11.5-14.5); Segmented Neutrophils % 62.9 %; White Blood Count 4.8 K/mcL (4.3-11.1)
[2021-01-20 19:06] LABS: Bilirubin,Urine Negative (Negative); Blood,Urine Negative (Negative); Clarity,Urine Clear (Clear); Color,Urine Colorless (Yellow); Glucose,Urine (UA) 50 mg/dL (Normal); Ketones,Urine Negative (Negative); Leukocyte Esterase,Urine Negative (Negative); Nitrite,Urine Negative (Negative); Protein,Urine Negative (Neg-Trace); Specific Gravity,Urine 1.013 (1.010-1.025); Squamous Epithelial Cell,Urine Few per hpf (None-Few); Urobilinogen,Urine Normal (Normal); WBC,Urine 0-3 per hpf (0-3)
[2021-01-20 19:26] LABS: Alanine Aminotransferase 16 Units/L (7-52); Albumin 4.1 g/dL (3.5-5.7); Albumin/Globulin Ratio 1.4 (1.1-2.2); Alkaline Phosphatase 98 Units/L (34-104); Aspartate Amino Transferase 17 Units/L (13-39); BUN/Creatinine Ratio 18 (6-26); Bilirubin,Direct 0.1 mg/dL (0.0-0.2); Bilirubin,Indirect 0.5 mg/dL (0.0-1.0); Bilirubin,Total 0.6 mg/dL (0.3-1.0); Blood Urea Nitrogen 13 mg/dL (6-20); Calcium 9.1 mg/dL (8.6-10.3); Carbon Dioxide 24 mEq/L (23-29); Chloride 107 mEq/L (98-107); Globulin 2.9 g/dL (2.4-3.5); Glucose 221 mg/dL (70-105); Lipase 42 Units/L (11-82); Osmolality,Calculated 295 (280-300); Potassium 3.7 mEq/L (3.5-5.1); Sodium 139 mEq/L (136-145); eGFR For African Americans > 60 (> 60); eGFR For Non-African Americans > 60 (> 60)
[2021-01-20] MEDS ORDERED: *HR* Heparin 5,000 UNIT/ML VIAL IVP ONE (21:44)
[2021-01-20] MEDS ORDERED: *HR* Heparin 5,000 UNIT/ML VIAL IVP PRN ×2 (21:44)
[2021-01-20] MEDS ORDERED: Heparin 25,000UNIT/250ML 1/2NS 25,000 UNIT/250 ML IV.SOLN IVC SCH (21:45)
[2021-01-21] MEDS ORDERED: Ondansetron 4 MG/2 ML VIAL IVP PRN (00:50)
[2021-01-21] MEDS ORDERED: Acetaminophen 325 MG TABLET PO PRN (00:50)
[2021-01-21] MEDS ORDERED: Naloxone 0.4 MG/ML INJ IVP PRN ×2 (00:50→10:55)
[2021-01-21] MEDS ORDERED: *HR* Dextrose 50 % in Water (Syg) 50 ML SYRINGE IVP PRN (00:53)
[2021-01-21] MEDS ORDERED: Dextrose Gel 15 GM/37.5 ML TUBE PO PRN ×2 (00:53)
[2021-01-21] MEDS ORDERED: D5% in Water 1,000 ML IVC PRN (00:53)
[2021-01-21 01:22] LABS: INR 1.2; Prothrombin Time 12.9 Seconds (9.4-12.1)
[2021-01-21 01:28] LABS: Activated Partial Thrombo Time 28.3 Seconds (26.0-36.0)
[2021-01-21 01:44] LABS: Influenza A PCR Negative (Negative); Influenza B PCR Negative (Negative); Resp. Syncytial Virus PCR Negative (Negative)
[2021-01-21 01:46] LABS: SARS-CoV-2 by PCR (In House) Negative (Negative)
[2021-01-21] MEDS: Insulin LISPRO 300 UNITS/3 ML VIAL SUBQ SCH ×5 (01:50→20:18)
[2021-01-21] MEDS ORDERED: Acetaminophen/Butalbital/CaffeineTABLET PO PRN (01:54)
[2021-01-21] MEDS: 0.9 % Sodium Chloride 1,000 ML IVC SCH ×2 (02:15→15:35)
[2021-01-21] MEDS: Famotidine 20 MG/2 ML VIAL IVP SCH ×2 (02:24→13:35)
[2021-01-21 02:26] LABS: Troponin I < 0.03 ng/mL (< 0.04)
[2021-01-21] MEDS: FLUoxetine 20 MG CAPSULE PO SCH (07:49)
[2021-01-21] MEDS ORDERED: Isovue-370 500 ML BOTTLE IVP ONE (09:06)
[2021-01-21 09:56] LABS: Hematocrit 35.8 % (35.3-44.9); Hemoglobin 11.9 g/dL (11.5-15.4); Mean Corpuscular HGB Conc 33.2 g/dL (31.6-35.5); Mean Corpuscular Hemoglobin 27.9 pg (28.0-33.3); Mean Corpuscular Volume 83.8 fL (83.0-100.0); Mean Platelet Volume 10.3 fL (9.4-12.4); Platelet Count 131 K/mcL (140-400); Red Blood Count 4.27 M/mcL (3.82-4.97); Red Cell Distribution Width 14.3 % (11.5-14.5); White Blood Count 4.5 K/mcL (4.3-11.1)
[2021-01-21 10:44] LABS: Estimated Average Glucose 180 mg/dl; Hemoglobin A1C 7.9 %
[2021-01-21] MEDS: *HR* HYDROcodone/Acet 5/325 mg TABLET PO PRN ×2 (11:01→17:08)
[2021-01-21 11:16] LABS: BUN/Creatinine Ratio 12 (6-26); Blood Urea Nitrogen 10 mg/dL (6-20); Calcium 8.7 mg/dL (8.6-10.3); Carbon Dioxide 16 mEq/L (23-29); Chloride 108 mEq/L (98-107); Chol/HDL Ratio 4.7 (0-4.9); Cholesterol 205 mg/dL (< 200); Glucose 191 mg/dL (70-105); HDL Cholesterol 44 mg/dL (40-59); LDL Cholesterol,Calculated 134 mg/dL (< 100); Magnesium 1.5 mg/dL (1.6-2.6); Osmolality,Calculated 290 (280-300); Potassium 3.6 mEq/L (3.5-5.1); Sodium 138 mEq/L (136-145); Thyroid Stimulating Hormone 4.343 mcIU/mL (0.340-5.600); Triglycerides 135 mg/dL (< 150); eGFR For African Americans > 60 (> 60); eGFR For Non-African Americans > 60 (> 60)
[2021-01-21 13:07] LABS: Amphetamine Screen,Urine Negative ng/mL (Cutoff=1000); Barbiturate Screen,Urine Negative ng/mL (Cutoff=200); Benzodiazepines Screen,Urine Negative ng/mL (Cutoff=200); Cannabinoid Screen,Urine Negative ng/mL (Cutoff = 50); Cocaine Screen,Urine Negative ng/mL (Cutoff= 300); Opiate Screen,Urine Positive ng/mL (Cutoff=300); Phencyclidine Screen,Urine Negative ng/mL (Cutoff=25)
[2021-01-21] MEDS: Apixaban 5 MG TABLET PO SCH ×2 (13:34→20:17)
[2021-01-21] MEDS ORDERED: QUEtiapine Fumarate 100 MG TABLET PO SCH (21:00)
[2021-01-21] MEDS ORDERED: Gabapentin 300 MG CAPSULE PO SCH (21:00)
[2021-01-21] MEDS ORDERED: Topiramate 100 MG TABLET PO SCH (21:00)
[2021-01-22] MEDS: *HR* HYDROcodone/Acet 5/325 mg TABLET PO PRN (01:06)
[2021-01-22 03:07] LABS: Hematocrit 31.1 % (35.3-44.9); Mean Corpuscular HGB Conc 33.1 g/dL (31.6-35.5); Mean Corpuscular Hemoglobin 27.6 pg (28.0-33.3); Mean Corpuscular Volume 83.4 fL (83.0-100.0); Mean Platelet Volume 11.2 fL (9.4-12.4); Platelet Count 120 K/mcL (140-400); Red Blood Count 3.73 M/mcL (3.82-4.97); Red Cell Distribution Width 14.3 % (11.5-14.5)
[2021-01-22 03:08] LABS: Hemoglobin 10.3 g/dL (11.5-15.4)
[2021-01-22 03:54] LABS: BUN/Creatinine Ratio 9 (6-26); Blood Urea Nitrogen 7 mg/dL (6-20); Calcium 8.3 mg/dL (8.6-10.3); Carbon Dioxide 21 mEq/L (23-29); Chloride 107 mEq/L (98-107); Glucose 243 mg/dL (70-105); Osmolality,Calculated 290 (280-300); Potassium 3.9 mEq/L (3.5-5.1); Sodium 137 mEq/L (136-145); eGFR For African Americans > 60 (> 60); eGFR For Non-African Americans > 60 (> 60)
[2021-01-22] MEDS ORDERED: *HR* HYDROmorphone (PF) 1 MG/ML SYRINGE IVP ONE (06:08)
[2021-01-22] MEDS: Insulin LISPRO 300 UNITS/3 ML VIAL SUBQ SCH ×2 (07:49→13:09)
[2021-01-22] MEDS: FLUoxetine 20 MG CAPSULE PO SCH (07:49)
[2021-01-22] MEDS: Apixaban 5 MG TABLET PO SCH (07:49)
[2021-01-22] MEDS: 0.9 % Sodium Chloride 1,000 ML IVC SCH (11:09)
[2021-01-22 12:19] VITALS: BP 118/76; PULSE 88; TEMP 99.6; O2SAT 97
[2021-01-22] MEDS ORDERED: Ketorolac 30 MG/ML VIAL IVP ONE (12:33)
[2021-01-22] MEDS: Famotidine 20 MG/2 ML VIAL IVP SCH ×2 (13:25)
== END 2021-01-22 15:00 | disposition home or self-care (01) ==
LOC: 3NENU 16:13 → EMEROOARM 16:13 → SUATTDRO 22:14 → 3NENU 23:03
PROVIDERS: ADMIT Student in an Organized Health Care Education/Training Program; ATTEND Family Medicine